=== PATIENT | female | born 1965 | race Caucasian/White ===

== ENCOUNTER 2020-07-27 10:39 | Inpatient (IN) ==
[2020-07-27] MEDS ORDERED: *HR* FentaNYL (PF) 100 MCG/2 ML VIAL IVP ONE ×3 (10:49→13:44)
[2020-07-27] MEDS ORDERED: 0.9 % Sodium Chloride 1,000 ML IVC ONE (10:49)
[2020-07-27] MEDS ORDERED: Isovue-370 500 ML BOTTLE IVP ONE (10:49)
[2020-07-27 11:11] LABS: Basophils % 0.2 %; Eosinophils # 0.1 K/mcL (0.0-0.6); Eosinophils % 0.5 %; Hematocrit 42.5 % (35.3-44.9); Hemoglobin 13.4 g/dL (11.5-15.4); Immature Granulocytes % 0.3 % (0-4); Lymphocytes # 1.6 K/mcL (0.6-4.6); Lymphocytes % 10.9 %; Mean Corpuscular HGB Conc 31.5 g/dL (31.6-35.5); Mean Corpuscular Hemoglobin 26.6 pg (28.0-33.3); Mean Corpuscular Volume 84.3 fL (83.0-100.0); Mean Platelet Volume 10.1 fL (9.4-12.4); Monocytes # 0.6 K/mcL (0.0-1.3); Neutrophils # 12.3 K/mcL (1.6-8.9); Platelet Count 235 K/mcL (140-400); Red Blood Count 5.04 M/mcL (3.82-4.97); Red Cell Distribution Width 15.6 % (11.5-14.5); Segmented Neutrophils % 84.1 %; White Blood Count 14.7 K/mcL (4.3-11.1)
[2020-07-27 11:32] LABS: Alanine Aminotransferase 22 Units/L (7-52); Albumin 4.1 g/dL (3.5-5.7); Albumin/Globulin Ratio 1.4 (1.1-2.2); Alkaline Phosphatase 69 Units/L (34-104); Aspartate Amino Transferase 18 Units/L (13-39); BUN/Creatinine Ratio 26 (6-26); Bilirubin,Direct 0.2 mg/dL (0.0-0.2); Bilirubin,Indirect 0.7 mg/dL (0.0-1.0); Bilirubin,Total 0.9 mg/dL (0.3-1.0); Blood Urea Nitrogen 17 mg/dL (6-20); Calcium 9.4 mg/dL (8.6-10.3); Carbon Dioxide 29 mEq/L (23-29); Chloride 102 mEq/L (98-107); Glucose 110 mg/dL (70-105); Osmolality,Calculated 288 (280-300); Potassium 3.3 mEq/L (3.5-5.1); Sodium 138 mEq/L (136-145); Total Protein 7.1 g/dL (6.4-8.9); eGFR For African Americans > 60 (> 60); eGFR For Non-African Americans > 60 (> 60)
[2020-07-27 12:11] LABS: Bilirubin,Urine Negative (Negative); Blood,Urine Negative (Negative); Clarity,Urine Clear (Clear); Color,Urine Yellow (Yellow); Glucose,Urine (UA) Normal (Normal); Ketones,Urine Negative (Negative); Leukocyte Esterase,Urine Trace (Negative); Nitrite,Urine Positive (Negative); Protein,Urine Negative (Neg-Trace); Specific Gravity,Urine 1.025 (1.010-1.025); Urobilinogen,Urine Normal (Normal)
[2020-07-27 12:25] LABS: Bacteria,Urine Few per hpf (None-Few); Mucus,Urine Few per lpf (None-Few); RBC,Urine 0-3 per hpf (0-3); Squamous Epithelial Cell,Urine Moderate per hpf (None-Few); WBC,Urine 15-30 per hpf (0-3)
[2020-07-27] MEDS ORDERED: Piperacillin/Tazobactam 3.375 GM in Water for inj. (sterile) 20 ML IVP ONE (12:40)
[2020-07-27] MEDS ORDERED: Ondansetron ODT 4 MG TAB.RAPDIS SL PRN (17:15)
[2020-07-27] MEDS ORDERED: Naloxone 0.4 MG/ML INJ IVP PRN (17:15)
[2020-07-27] MEDS ORDERED: levoFLOXacin 750 MG/150 ML 750 MG/150 ML BAG IVPB SCH (18:00)
[2020-07-27 18:03] LABS: Basophils % 0.2 %; Eosinophils % 0.1 %; Hematocrit 42.5 % (35.3-44.9); Hemoglobin 13.8 g/dL (11.5-15.4); Immature Granulocytes % 0.5 % (0-4); Lymphocytes # 1.4 K/mcL (0.6-4.6); Lymphocytes % 7.5 %; Mean Corpuscular HGB Conc 32.5 g/dL (31.6-35.5); Mean Corpuscular Hemoglobin 27.6 pg (28.0-33.3); Mean Platelet Volume 9.9 fL (9.4-12.4); Monocytes # 0.6 K/mcL (0.0-1.3); Monocytes % 3.4 %; Neutrophils # 16.6 K/mcL (1.6-8.9); Platelet Count 234 K/mcL (140-400); Red Cell Distribution Width 15.8 % (11.5-14.5); Segmented Neutrophils % 88.3 %; White Blood Count 18.7 K/mcL (4.3-11.1)
[2020-07-27 18:13] LABS: INR 1.1; Prothrombin Time 12.9 Seconds (9.4-12.1)
[2020-07-27 18:16] LABS: Activated Partial Thrombo Time 26.9 Seconds (26.0-36.0)
[2020-07-27 18:22] LABS: Alanine Aminotransferase 20 Units/L (7-52); Albumin 4.3 g/dL (3.5-5.7); Albumin/Globulin Ratio 1.4 (1.1-2.2); Alkaline Phosphatase 70 Units/L (34-104); Aspartate Amino Transferase 19 Units/L (13-39); BUN/Creatinine Ratio 19 (6-26); Bilirubin,Direct 0.2 mg/dL (0.0-0.2); Bilirubin,Indirect 0.9 mg/dL (0.0-1.0); Bilirubin,Total 1.1 mg/dL (0.3-1.0); Blood Urea Nitrogen 13 mg/dL (6-20); Calcium 9.3 mg/dL (8.6-10.3); Carbon Dioxide 27 mEq/L (23-29); Chloride 101 mEq/L (98-107); Globulin 3.1 g/dL (2.4-3.5); Glucose 112 mg/dL (70-105); Osmolality,Calculated 283 (280-300); Potassium 3.3 mEq/L (3.5-5.1); Sodium 136 mEq/L (136-145); Total Protein 7.4 g/dL (6.4-8.9); eGFR For African Americans > 60 (> 60); eGFR For Non-African Americans > 60 (> 60)
[2020-07-27] MEDS: 0.9 % Sodium Chloride 1,000 ML IVC SCH ×4 (18:26→21:40)
[2020-07-27] MEDS: MetroNIDAZOLE 500 MG/100 ML 500 MG/100 ML BAG IVPB SCH (18:27)
[2020-07-27] MEDS ORDERED: Potassium Chloride 40 MEQ, Lidocaine 1% 2 ML in 0.9 % Sodium Chloride 500 ML IVPB ONE (18:41)
[2020-07-27] MEDS: *HR* Heparin 5,000 UNIT/ML VIAL SQ SCH (19:44)
[2020-07-28] MEDS: MetroNIDAZOLE 500 MG/100 ML 500 MG/100 ML BAG IVPB SCH ×3 (01:43→19:13)
[2020-07-28] MEDS: *HR* Heparin 5,000 UNIT/ML VIAL SQ SCH ×2 (05:54→17:02)
[2020-07-28 08:31] LABS: Basophils % 0.2 %; Eosinophils % 0.3 %; Hematocrit 38.9 % (35.3-44.9); Immature Granulocytes % 0.5 % (0-4); Lymphocytes # 1.9 K/mcL (0.6-4.6); Lymphocytes % 15.7 %; Mean Corpuscular HGB Conc 30.6 g/dL (31.6-35.5); Mean Corpuscular Hemoglobin 26.6 pg (28.0-33.3); Mean Platelet Volume 10.2 fL (9.4-12.4); Monocytes # 0.8 K/mcL (0.0-1.3); Monocytes % 6.5 %; Platelet Count 197 K/mcL (140-400); Red Blood Count 4.47 M/mcL (3.82-4.97); Red Cell Distribution Width 15.9 % (11.5-14.5); Segmented Neutrophils % 76.8 %; White Blood Count 11.8 K/mcL (4.3-11.1)
[2020-07-28 08:33] LABS: Hemoglobin 11.9 g/dL (11.5-15.4)
[2020-07-28 08:38] LABS: INR 1.3
[2020-07-28 08:40] LABS: Activated Partial Thrombo Time 27.9 Seconds (26.0-36.0)
[2020-07-28 08:44] LABS: Alanine Aminotransferase 19 Units/L (7-52); Albumin 3.6 g/dL (3.5-5.7); Albumin/Globulin Ratio 1.3 (1.1-2.2); Alkaline Phosphatase 55 Units/L (34-104); Aspartate Amino Transferase 14 Units/L (13-39); BUN/Creatinine Ratio 18 (6-26); Bilirubin,Total 1.1 mg/dL (0.3-1.0); Blood Urea Nitrogen 11 mg/dL (6-20); Calcium 8.4 mg/dL (8.6-10.3); Carbon Dioxide 26 mEq/L (23-29); Chloride 103 mEq/L (98-107); Chol/HDL Ratio 2.6 (0-4.9); Cholesterol 121 mg/dL (< 200); Globulin 2.7 g/dL (2.4-3.5); Glucose 96 mg/dL (70-105); HDL Cholesterol 47 mg/dL (40-59); LDL Cholesterol,Calculated 62 mg/dL (< 100); Osmolality,Calculated 281 (280-300); Phosphorous 2.4 mg/dL (2.7-4.5); Potassium 3.3 mEq/L (3.5-5.1); Sodium 136 mEq/L (136-145); Total Protein 6.3 g/dL (6.4-8.9); Triglycerides 60 mg/dL (< 150); eGFR For African Americans > 60 (> 60); eGFR For Non-African Americans > 60 (> 60)
[2020-07-28] MEDS ORDERED: Potassium Phosphate 44 MEQ in 0.9 % Sodium Chloride 250 ML IVPB ONE (09:15)
[2020-07-29] MEDS: MetroNIDAZOLE 500 MG/100 ML 500 MG/100 ML BAG IVPB SCH ×3 (02:23→17:50)
[2020-07-29] MEDS: *HR* Heparin 5,000 UNIT/ML VIAL SQ SCH ×2 (05:19→17:50)
[2020-07-29 09:36] LABS: Basophils % 0.3 %; Eosinophils # 0.1 K/mcL (0.0-0.6); Eosinophils % 0.5 %; Hematocrit 42.1 % (35.3-44.9); Hemoglobin 12.9 g/dL (11.5-15.4); Immature Granulocytes % 0.4 % (0-4); Lymphocytes # 1.5 K/mcL (0.6-4.6); Lymphocytes % 14.8 %; Mean Corpuscular HGB Conc 30.6 g/dL (31.6-35.5); Mean Corpuscular Hemoglobin 26.5 pg (28.0-33.3); Mean Corpuscular Volume 86.6 fL (83.0-100.0); Mean Platelet Volume 10.1 fL (9.4-12.4); Monocytes # 0.7 K/mcL (0.0-1.3); Monocytes % 6.3 %; Platelet Count 212 K/mcL (140-400); Red Blood Count 4.86 M/mcL (3.82-4.97); Red Cell Distribution Width 15.8 % (11.5-14.5); Segmented Neutrophils % 77.7 %; White Blood Count 10.3 K/mcL (4.3-11.1)
[2020-07-29 09:43] LABS: INR 1.3; Prothrombin Time 14.6 Seconds (9.4-12.1)
[2020-07-29 09:56] LABS: Alanine Aminotransferase 13 Units/L (7-52); Albumin/Globulin Ratio 1.3 (1.1-2.2); Alkaline Phosphatase 62 Units/L (34-104); Aspartate Amino Transferase 14 Units/L (13-39); BUN/Creatinine Ratio 19 (6-26); Bilirubin,Total 0.9 mg/dL (0.3-1.0); Blood Urea Nitrogen 12 mg/dL (6-20); Carbon Dioxide 25 mEq/L (23-29); Chloride 101 mEq/L (98-107); Glucose 82 mg/dL (70-105); Osmolality,Calculated 279 (280-300); Potassium 3.4 mEq/L (3.5-5.1); Sodium 135 mEq/L (136-145); eGFR For African Americans > 60 (> 60); eGFR For Non-African Americans > 60 (> 60)
[2020-07-29] MEDS ORDERED: Potassium Chloride 40 MEQ, Lidocaine 1% 2 ML in 0.9 % Sodium Chloride 500 ML IVPB ONE (12:27)
[2020-07-30] MEDS: MetroNIDAZOLE 500 MG/100 ML 500 MG/100 ML BAG IVPB SCH ×3 (01:33→17:54)
[2020-07-30] MEDS: *HR* Heparin 5,000 UNIT/ML VIAL SQ SCH ×2 (05:31→17:52)
[2020-07-30 05:59] LABS: Basophils % 0.4 %; Eosinophils # 0.1 K/mcL (0.0-0.6); Eosinophils % 1.4 %; Hematocrit 36.6 % (35.3-44.9); Immature Granulocytes % 0.4 % (0-4); Lymphocytes # 1.8 K/mcL (0.6-4.6); Lymphocytes % 18.4 %; Mean Corpuscular HGB Conc 30.6 g/dL (31.6-35.5); Mean Corpuscular Hemoglobin 26.5 pg (28.0-33.3); Mean Corpuscular Volume 86.7 fL (83.0-100.0); Mean Platelet Volume 10.2 fL (9.4-12.4); Monocytes # 0.7 K/mcL (0.0-1.3); Monocytes % 6.9 %; Neutrophils # 7.1 K/mcL (1.6-8.9); Platelet Count 201 K/mcL (140-400); Red Blood Count 4.22 M/mcL (3.82-4.97); Red Cell Distribution Width 15.6 % (11.5-14.5); Segmented Neutrophils % 72.5 %; White Blood Count 9.7 K/mcL (4.3-11.1)
[2020-07-30 06:00] LABS: Hemoglobin 11.2 g/dL (11.5-15.4)
[2020-07-30 06:14] LABS: INR 1.4; Prothrombin Time 15.5 Seconds (9.4-12.1)
[2020-07-30 06:16] LABS: Alanine Aminotransferase 12 Units/L (7-52); Albumin 3.5 g/dL (3.5-5.7); Albumin/Globulin Ratio 1.3 (1.1-2.2); Alkaline Phosphatase 52 Units/L (34-104); Aspartate Amino Transferase 13 Units/L (13-39); BUN/Creatinine Ratio 14 (6-26); Bilirubin,Total 0.7 mg/dL (0.3-1.0); Blood Urea Nitrogen 10 mg/dL (6-20); Calcium 8.7 mg/dL (8.6-10.3); Carbon Dioxide 29 mEq/L (23-29); Chloride 103 mEq/L (98-107); Globulin 2.6 g/dL (2.4-3.5); Glucose 97 mg/dL (70-105); Osmolality,Calculated 281 (280-300); Potassium 3.8 mEq/L (3.5-5.1); Sodium 136 mEq/L (136-145); Total Protein 6.1 g/dL (6.4-8.9); eGFR For African Americans > 60 (> 60); eGFR For Non-African Americans > 60 (> 60)
[2020-07-30 11:48] LABS: Bilirubin,Urine Negative (Negative); Blood,Urine Large (Negative); Clarity,Urine Clear (Clear); Color,Urine Yellow (Yellow); Glucose,Urine (UA) Normal (Normal); Ketones,Urine Negative (Negative); Leukocyte Esterase,Urine Small (Negative); Nitrite,Urine Negative (Negative); Protein,Urine Negative (Neg-Trace); Urobilinogen,Urine Normal (Normal)
[2020-07-30 11:59] LABS: Mucus,Urine Few per lpf (None-Few); RBC,Urine TNTC per hpf (0-3); Squamous Epithelial Cell,Urine Moderate per hpf (None-Few)
[2020-07-31] MEDS: MetroNIDAZOLE 500 MG/100 ML 500 MG/100 ML BAG IVPB SCH ×2 (02:43→09:55)
[2020-07-31] MEDS: *HR* Heparin 5,000 UNIT/ML VIAL SQ SCH (05:47)
[2020-07-31 06:22] LABS: Basophils % 0.4 %; Eosinophils # 0.2 K/mcL (0.0-0.6); Eosinophils % 2.3 %; Hematocrit 35.9 % (35.3-44.9); Hemoglobin 11.2 g/dL (11.5-15.4); Immature Granulocytes % 0.7 % (0-4); Lymphocytes # 1.8 K/mcL (0.6-4.6); Lymphocytes % 21.6 %; Mean Corpuscular HGB Conc 31.2 g/dL (31.6-35.5); Mean Corpuscular Hemoglobin 27.5 pg (28.0-33.3); Mean Platelet Volume 10.3 fL (9.4-12.4); Monocytes # 0.6 K/mcL (0.0-1.3); Monocytes % 6.8 %; Neutrophils # 5.5 K/mcL (1.6-8.9); Platelet Count 222 K/mcL (140-400); Red Blood Count 4.08 M/mcL (3.82-4.97); Red Cell Distribution Width 15.4 % (11.5-14.5); Segmented Neutrophils % 68.2 %; White Blood Count 8.1 K/mcL (4.3-11.1)
[2020-07-31 07:20] VITALS: BP 107/66
== END 2020-07-31 12:51 | disposition home or self-care (01) | DRG 872 ==
LOC: EMEROOARM 10:39 → 3ANU 10:39 → SUATTDRO 14:08 → 3ANU 15:24
PROVIDERS: ADMIT Internal Medicine; ATTEND Internal Medicine

== ENCOUNTER 2020-08-22 13:29 | Observation (INO) ==
[2020-08-22] MEDS ORDERED: Ondansetron 4 MG/2 ML VIAL IVP PRN (14:18)
[2020-08-22] MEDS ORDERED: *HR* Metoprolol 5 MG/5 ML VIAL IVP PRN (14:18)
[2020-08-22] MEDS ORDERED: *HR* Promethazine 25 MG/ML VIAL IVP PRN (14:18)
[2020-08-22] MEDS ORDERED: Naloxone 0.4 MG/ML INJ IVP PRN (14:18)
[2020-08-22 14:48] LABS: Basophils % 0.4 %; Eosinophils # 0.1 K/mcL (0.0-0.6); Eosinophils % 1.2 %; Hematocrit 40.7 % (35.3-44.9); Hemoglobin 12.7 g/dL (11.5-15.4); Immature Granulocytes % 0.4 % (0-4); Lymphocytes # 1.5 K/mcL (0.6-4.6); Lymphocytes % 17.7 %; Mean Corpuscular HGB Conc 31.2 g/dL (31.6-35.5); Mean Corpuscular Hemoglobin 26.5 pg (28.0-33.3); Mean Corpuscular Volume 84.8 fL (83.0-100.0); Mean Platelet Volume 9.6 fL (9.4-12.4); Monocytes # 0.4 K/mcL (0.0-1.3); Monocytes % 4.9 %; Neutrophils # 6.4 K/mcL (1.6-8.9); Platelet Count 238 K/mcL (140-400); Red Cell Distribution Width 14.8 % (11.5-14.5); Segmented Neutrophils % 75.4 %; White Blood Count 8.5 K/mcL (4.3-11.1)
[2020-08-22 15:05] LABS: BUN/Creatinine Ratio 19 (6-26); Blood Urea Nitrogen 13 mg/dL (6-20); Calcium 9.2 mg/dL (8.6-10.3); Carbon Dioxide 30 mEq/L (23-29); Chloride 99 mEq/L (98-107); Glucose 119 mg/dL (70-105); Osmolality,Calculated 285 (280-300); Sodium 137 mEq/L (136-145); eGFR For African Americans > 60 (> 60); eGFR For Non-African Americans > 60 (> 60)
[2020-08-22 16:43] LABS: Phosphorous 2.3 mg/dL (2.7-4.5)
[2020-08-22] MEDS ORDERED: Potassium Phosphate 44 MEQ in 0.9 % Sodium Chloride 250 ML IVPB ONE (17:00)
[2020-08-22] MEDS: Piperacillin/Tazobactam 3.375 GM in 0.9 % Sodium Chloride Mini Bag 100 ML IVPB SCH ×2 (17:43→19:44)
[2020-08-22] MEDS: 0.9 % Sodium Chloride 1,000 ML IVC SCH (17:46)
[2020-08-23 05:52] LABS: Basophils % 0.6 %; Eosinophils # 0.1 K/mcL (0.0-0.6); Eosinophils % 1.8 %; Hematocrit 38.2 % (35.3-44.9); Hemoglobin 12.1 g/dL (11.5-15.4); Immature Granulocytes % 0.3 % (0-4); Lymphocytes # 1.7 K/mcL (0.6-4.6); Lymphocytes % 26.1 %; Mean Corpuscular HGB Conc 31.7 g/dL (31.6-35.5); Mean Corpuscular Hemoglobin 27.3 pg (28.0-33.3); Mean Corpuscular Volume 86.2 fL (83.0-100.0); Mean Platelet Volume 9.8 fL (9.4-12.4); Monocytes # 0.5 K/mcL (0.0-1.3); Neutrophils # 4.2 K/mcL (1.6-8.9); Platelet Count 230 K/mcL (140-400); Red Blood Count 4.43 M/mcL (3.82-4.97); Red Cell Distribution Width 15.1 % (11.5-14.5); Segmented Neutrophils % 63.2 %; White Blood Count 6.6 K/mcL (4.3-11.1)
[2020-08-23 06:18] LABS: BUN/Creatinine Ratio 18 (6-26); Blood Urea Nitrogen 12 mg/dL (6-20); Calcium 9.1 mg/dL (8.6-10.3); Carbon Dioxide 29 mEq/L (23-29); Chloride 101 mEq/L (98-107); Glucose 110 mg/dL (70-105); Magnesium 2.1 mg/dL (1.6-2.6); Osmolality,Calculated 286 (280-300); Phosphorous 4.4 mg/dL (2.7-4.5); Potassium 3.7 mEq/L (3.5-5.1); Sodium 138 mEq/L (136-145); eGFR For African Americans > 60 (> 60); eGFR For Non-African Americans > 60 (> 60)
[2020-08-23] MEDS: Piperacillin/Tazobactam 3.375 GM in 0.9 % Sodium Chloride Mini Bag 100 ML IVPB SCH ×3 (08:30→15:29)
[2020-08-23] MEDS: Pantoprazole 40 MG VIAL IVP SCH (08:30)
[2020-08-23] MEDS ORDERED: Ondansetron ODT 4 MG TAB.RAPDIS SL PRN (08:58)
[2020-08-23 11:06] LABS: Estimated Average Glucose 123 mg/dl
[2020-08-23] MEDS: *HR* Heparin 5,000 UNIT/ML VIAL SQ SCH ×2 (14:32→21:04)
[2020-08-23] MEDS: 0.9 % Sodium Chloride 1,000 ML IVC SCH (18:39)
[2020-08-24] MEDS: Piperacillin/Tazobactam 3.375 GM in 0.9 % Sodium Chloride Mini Bag 100 ML IVPB SCH ×2 (00:11→07:58)
[2020-08-24] MEDS: *HR* Heparin 5,000 UNIT/ML VIAL SQ SCH (05:19)
[2020-08-24] MEDS ORDERED: Isovue-370 500 ML BOTTLE IVP ONE (06:55)
[2020-08-24 07:46] LABS: INR 1.2; Prothrombin Time 14.3 Seconds (9.4-12.1)
[2020-08-24 07:48] LABS: Basophils % 0.5 %; Eosinophils # 0.2 K/mcL (0.0-0.6); Eosinophils % 2.6 %; Hematocrit 38.3 % (35.3-44.9); Hemoglobin 12.1 g/dL (11.5-15.4); Immature Granulocytes % 0.3 % (0-4); Lymphocytes # 2.1 K/mcL (0.6-4.6); Lymphocytes % 33.4 %; Mean Corpuscular HGB Conc 31.6 g/dL (31.6-35.5); Mean Corpuscular Hemoglobin 27.4 pg (28.0-33.3); Mean Corpuscular Volume 86.8 fL (83.0-100.0); Monocytes # 0.4 K/mcL (0.0-1.3); Monocytes % 6.7 %; Neutrophils # 3.5 K/mcL (1.6-8.9); Platelet Count 231 K/mcL (140-400); Red Blood Count 4.41 M/mcL (3.82-4.97); Red Cell Distribution Width 15.1 % (11.5-14.5); Segmented Neutrophils % 56.5 %; White Blood Count 6.2 K/mcL (4.3-11.1)
[2020-08-24] MEDS: Pantoprazole 40 MG VIAL IVP SCH (07:58)
[2020-08-24 08:13] LABS: BUN/Creatinine Ratio 12 (6-26); Blood Urea Nitrogen 8 mg/dL (6-20); Calcium 9.1 mg/dL (8.6-10.3); Carbon Dioxide 27 mEq/L (23-29); Chloride 104 mEq/L (98-107); Glucose 111 mg/dL (70-105); Magnesium 2.2 mg/dL (1.6-2.6); Osmolality,Calculated 287 (280-300); Phosphorous 3.1 mg/dL (2.7-4.5); Potassium 3.5 mEq/L (3.5-5.1); Sodium 139 mEq/L (136-145); eGFR For African Americans > 60 (> 60); eGFR For Non-African Americans > 60 (> 60)
[2020-08-24 10:49] VITALS: BP 107/63
[2020-08-24] MEDS ORDERED: FLU Vac QV 20-21 (6Month+)/PF 0.5 ML SYRINGE IM ONE (14:17)
== END 2020-08-24 15:36 | disposition home or self-care (01) ==
LOC: 3ANU
PROVIDERS: ADMIT Surgery; ATTEND Surgery

== ENCOUNTER 2020-12-12 09:16 | Inpatient (IN) ==
[~2020-12-12 09:16] MED LIST: *HR* HYDROcodone/Acet 5/325 mg TABLET PO PRN; *HR* HYDROmorphone PF 0.5 MG/0.5 ML SYRINGE IVP PRN; Ondansetron 4 MG/2 ML VIAL IVP PRN
[2020-12-12] MEDS ORDERED: Acetaminophen IV 1,000 MG/100 ML BAG IVPB ONE (09:27)
[2020-12-12] MEDS ORDERED: Albumin Human 5% 25.0 GM/500 ML IV.SOLN ONE (09:27)
[2020-12-12] MEDS ORDERED: Lidocaine -MPF 4% 5 ML AMPUL ONE (09:29)
[2020-12-12] MEDS ORDERED: cefOXitin 2,000 MG in Water for inj. (sterile) 20 ML IVP ONE (09:35)
[2020-12-12] MEDS ORDERED: *HR* FentaNYL (PF) 100 MCG/2 ML VIAL ONE (09:36)
[2020-12-12] MEDS ORDERED: *HR* Midazolam HCl 2 MG/2 ML VIAL ONE (09:36)
[2020-12-12] MEDS ORDERED: *HR* HYDROMORPHONE 2 MG/ML VIAL ONE (09:37)
[2020-12-12] MEDS ORDERED: *HR* Succinylcholine 200 MG/10 ML VIAL IVP ONE (09:41)
[2020-12-12] MEDS ORDERED: Ondansetron 4 MG/2 ML VIAL ONE (09:41)
[2020-12-12] MEDS ORDERED: *HR* Rocuronium Bromide 50 MG/5 ML VIAL ONE ×2 (09:41→11:40)
[2020-12-12] MEDS ORDERED: Lidocaine -MPF 2% 2 ML VIAL ONE (09:41)
[2020-12-12] MEDS ORDERED: *HR* Magnesium Sulfate 1 GM/2 ML VIAL ONE (09:44)
[2020-12-12] MEDS ORDERED: Ringers Solution, Lactated 1,000 ML IVC SCH (09:45)
[2020-12-12] MEDS ORDERED: *HR* Labetalol 20 MG/4 ML SYRINGE IVP ONE (13:04)
[2020-12-12] MEDS ORDERED: CefOXitin 2,000 MG VIAL ONE (14:58)
[2020-12-12] MEDS ORDERED: Naloxone 0.4 MG/ML INJ IVP PRN (16:48)
[2020-12-12] MEDS ORDERED: D5% in Water 1,000 ML IVC PRN (16:48)
[2020-12-12] MEDS ORDERED: *HR* Metoprolol 5 MG/5 ML VIAL IVP PRN (16:48)
[2020-12-12] MEDS ORDERED: Ondansetron 4 MG/2 ML VIAL IVP PRN (16:48)
[2020-12-12] MEDS ORDERED: *HR* Dextrose 50 % in Water (Vial) 50 ML VIAL IVP PRN (16:48)
[2020-12-12] MEDS ORDERED: Dextrose Gel 15 GM/37.5 ML TUBE PO PRN ×2 (16:48)
[2020-12-12] MEDS: Piperacillin/Tazobactam 3.375 GM in 0.9 % Sodium Chloride Mini Bag 100 ML IVPB SCH ×2 (17:14→23:48)
[2020-12-12] MEDS: 0.9 % Sodium Chloride 1,000 ML IVC SCH (17:15)
[2020-12-12] MEDS: Acetaminophen IV 1,000 MG/100 ML BAG IVPB SCH ×2 (18:00→23:49)
[2020-12-12] MEDS: Insulin LISPRO 300 UNITS/3 ML VIAL SUBQ SCH ×2 (18:03→23:55)
[2020-12-12] MEDS: *HR* FentaNYL (PF) 100 MCG/2 ML VIAL IVP PRN ×2 (20:39→23:49)
[2020-12-13] MEDS: 0.9 % Sodium Chloride 1,000 ML IVC SCH ×3 (01:15→16:00)
[2020-12-13 02:09] LABS: Basophils % 0.1 %; Hemoglobin 11.6 g/dL (11.5-15.4); Immature Granulocytes % 0.3 % (0-4); Lymphocytes # 0.8 K/mcL (0.6-4.6); Mean Corpuscular HGB Conc 30.5 g/dL (31.6-35.5); Mean Corpuscular Hemoglobin 25.3 pg (28.0-33.3); Mean Platelet Volume 10.7 fL (9.4-12.4); Monocytes % 4.8 %; Neutrophils # 18.4 K/mcL (1.6-8.9); Platelet Count 257 K/mcL (140-400); Red Blood Count 4.58 M/mcL (3.82-4.97); Segmented Neutrophils % 90.8 %; White Blood Count 20.3 K/mcL (4.3-11.1)
[2020-12-13 02:20] LABS: BUN/Creatinine Ratio 19 (6-26); Blood Urea Nitrogen 15 mg/dL (6-20); Calcium 8.6 mg/dL (8.6-10.3); Carbon Dioxide 25 mEq/L (23-29); Chloride 105 mEq/L (98-107); Glucose 185 mg/dL (70-105); Magnesium 2.4 mg/dL (1.6-2.6); Osmolality,Calculated 294 (280-300); Phosphorous 3.1 mg/dL (2.7-4.5); Potassium 3.8 mEq/L (3.5-5.1); Sodium 139 mEq/L (136-145); eGFR For African Americans > 60 (> 60); eGFR For Non-African Americans > 60 (> 60)
[2020-12-13] MEDS: Insulin LISPRO 300 UNITS/3 ML VIAL SUBQ SCH ×3 (05:40→17:44)
[2020-12-13] MEDS: Acetaminophen IV 1,000 MG/100 ML BAG IVPB SCH ×4 (05:40→23:16)
[2020-12-13] MEDS: Piperacillin/Tazobactam 3.375 GM in 0.9 % Sodium Chloride Mini Bag 100 ML IVPB SCH ×3 (07:52→23:17)
[2020-12-13] MEDS: Pantoprazole 40 MG VIAL IVP SCH (07:55)
[2020-12-13] MEDS ORDERED: Chloraseptic Spray 177 ML BOTTLE MM PRN (08:52)
[2020-12-13] MEDS ORDERED: Albuterol 2.5 MG/3 ML NEBULIZER IH PRN (09:37)
[2020-12-13] MEDS: Ketorolac 15 MG/ML VIAL IVP SCH ×3 (11:10→23:17)
[2020-12-13] MEDS: *HR* FentaNYL (PF) 100 MCG/2 ML VIAL IVP PRN ×2 (14:28→16:41)
[2020-12-13] MEDS: *HR* Heparin 5,000 UNIT/ML VIAL SQ SCH (17:23)
[2020-12-14] MEDS: 0.9 % Sodium Chloride 1,000 ML IVC SCH (00:27)
[2020-12-14] MEDS: Insulin LISPRO 300 UNITS/3 ML VIAL SUBQ SCH ×4 (01:23→17:51)
[2020-12-14] MEDS: *HR* Heparin 5,000 UNIT/ML VIAL SQ SCH ×2 (05:34→17:50)
[2020-12-14] MEDS: Ketorolac 15 MG/ML VIAL IVP SCH ×4 (05:35→23:43)
[2020-12-14] MEDS: Acetaminophen IV 1,000 MG/100 ML BAG IVPB SCH ×4 (05:35→23:54)
[2020-12-14 05:38] LABS: Basophils % 0.1 %; Hematocrit 31.6 % (35.3-44.9); Immature Granulocytes % 0.5 % (0-4); Lymphocytes # 1.8 K/mcL (0.6-4.6); Lymphocytes % 12.5 %; Mean Corpuscular HGB Conc 30.4 g/dL (31.6-35.5); Mean Corpuscular Hemoglobin 25.3 pg (28.0-33.3); Mean Corpuscular Volume 83.4 fL (83.0-100.0); Mean Platelet Volume 10.4 fL (9.4-12.4); Monocytes # 0.8 K/mcL (0.0-1.3); Monocytes % 5.7 %; Neutrophils # 11.7 K/mcL (1.6-8.9); Platelet Count 229 K/mcL (140-400); Red Blood Count 3.79 M/mcL (3.82-4.97); Red Cell Distribution Width 15.4 % (11.5-14.5); Segmented Neutrophils % 81.2 %; White Blood Count 14.4 K/mcL (4.3-11.1)
[2020-12-14 05:39] LABS: Hemoglobin 9.6 g/dL (11.5-15.4)
[2020-12-14 06:04] LABS: BUN/Creatinine Ratio 24 (6-26); Blood Urea Nitrogen 19 mg/dL (6-20); Calcium 8.3 mg/dL (8.6-10.3); Carbon Dioxide 26 mEq/L (23-29); Chloride 108 mEq/L (98-107); Glucose 103 mg/dL (70-105); Magnesium 2.3 mg/dL (1.6-2.6); Osmolality,Calculated 291 (280-300); Phosphorous 2.2 mg/dL (2.7-4.5); Potassium 3.4 mEq/L (3.5-5.1); Sodium 139 mEq/L (136-145); eGFR For African Americans > 60 (> 60); eGFR For Non-African Americans > 60 (> 60)
[2020-12-14] MEDS: Pantoprazole 40 MG VIAL IVP SCH (08:59)
[2020-12-14] MEDS: Piperacillin/Tazobactam 3.375 GM in 0.9 % Sodium Chloride Mini Bag 100 ML IVPB SCH ×3 (09:00→23:45)
[2020-12-14] MEDS: D5% in 0.45% NACL w KCl 20 MEQ/1,000 ML MLS IVC SCH ×2 (09:05→21:50)
[2020-12-14] MEDS: *HR* FentaNYL (PF) 100 MCG/2 ML VIAL IVP PRN (23:50)
[2020-12-15] MEDS: Insulin LISPRO 300 UNITS/3 ML VIAL SUBQ SCH ×4 (00:12→17:50)
[2020-12-15 02:55] LABS: Basophils % 0.3 %; Eosinophils # 0.1 K/mcL (0.0-0.6); Eosinophils % 1.1 %; Hematocrit 30.8 % (35.3-44.9); Hemoglobin 9.6 g/dL (11.5-15.4); Immature Granulocytes % 0.4 % (0-4); Lymphocytes # 2.4 K/mcL (0.6-4.6); Lymphocytes % 21.7 %; Mean Corpuscular HGB Conc 31.2 g/dL (31.6-35.5); Mean Corpuscular Volume 83.5 fL (83.0-100.0); Mean Platelet Volume 10.3 fL (9.4-12.4); Monocytes # 0.6 K/mcL (0.0-1.3); Monocytes % 5.7 %; Neutrophils # 7.8 K/mcL (1.6-8.9); Platelet Count 220 K/mcL (140-400); Red Blood Count 3.69 M/mcL (3.82-4.97); Red Cell Distribution Width 15.4 % (11.5-14.5); Segmented Neutrophils % 70.8 %
[2020-12-15 03:14] LABS: BUN/Creatinine Ratio 21 (6-26); Blood Urea Nitrogen 14 mg/dL (6-20); Calcium 8.3 mg/dL (8.6-10.3); Carbon Dioxide 26 mEq/L (23-29); Chloride 107 mEq/L (98-107); Glucose 100 mg/dL (70-105); Magnesium 1.9 mg/dL (1.6-2.6); Osmolality,Calculated 287 (280-300); Potassium 3.5 mEq/L (3.5-5.1); Sodium 138 mEq/L (136-145); eGFR For African Americans > 60 (> 60); eGFR For Non-African Americans > 60 (> 60)
[2020-12-15] MEDS: Ketorolac 15 MG/ML VIAL IVP SCH ×4 (05:26→22:59)
[2020-12-15] MEDS: Acetaminophen IV 1,000 MG/100 ML BAG IVPB SCH ×4 (05:26→22:59)
[2020-12-15] MEDS: *HR* Heparin 5,000 UNIT/ML VIAL SQ SCH ×2 (05:26→17:54)
[2020-12-15] MEDS: D5% in 0.45% NACL w KCl 20 MEQ/1,000 ML MLS IVC SCH ×2 (08:15→20:02)
[2020-12-15] MEDS: Pantoprazole 40 MG VIAL IVP SCH (09:54)
[2020-12-15] MEDS: Piperacillin/Tazobactam 3.375 GM in 0.9 % Sodium Chloride Mini Bag 100 ML IVPB SCH ×3 (09:54→23:00)
[2020-12-15] MEDS: *HR* FentaNYL (PF) 100 MCG/2 ML VIAL IVP PRN ×2 (13:28→16:09)
[2020-12-16] MEDS: Insulin LISPRO 300 UNITS/3 ML VIAL SUBQ SCH ×4 (00:13→17:35)
[2020-12-16] MEDS: D5% in 0.45% NACL w KCl 20 MEQ/1,000 ML MLS IVC SCH ×2 (01:50→19:24)
[2020-12-16 04:29] LABS: Basophils % 0.5 %; Eosinophils # 0.3 K/mcL (0.0-0.6); Eosinophils % 3.6 %; Hematocrit 29.8 % (35.3-44.9); Hemoglobin 9.3 g/dL (11.5-15.4); Immature Granulocytes % 0.5 % (0-4); Lymphocytes % 24.6 %; Mean Corpuscular HGB Conc 31.2 g/dL (31.6-35.5); Mean Corpuscular Hemoglobin 26.1 pg (28.0-33.3); Mean Corpuscular Volume 83.5 fL (83.0-100.0); Mean Platelet Volume 10.3 fL (9.4-12.4); Monocytes # 0.4 K/mcL (0.0-1.3); Monocytes % 5.1 %; Neutrophils # 5.4 K/mcL (1.6-8.9); Platelet Count 237 K/mcL (140-400); Red Blood Count 3.57 M/mcL (3.82-4.97); Segmented Neutrophils % 65.7 %; White Blood Count 8.2 K/mcL (4.3-11.1)
[2020-12-16 04:30] LABS: BUN/Creatinine Ratio 15 (6-26); Blood Urea Nitrogen 8 mg/dL (6-20); Calcium 8.2 mg/dL (8.6-10.3); Carbon Dioxide 27 mEq/L (23-29); Chloride 106 mEq/L (98-107); Glucose 99 mg/dL (70-105); Magnesium 1.8 mg/dL (1.6-2.6); Osmolality,Calculated 284 (280-300); Phosphorous 3.2 mg/dL (2.7-4.5); Potassium 3.5 mEq/L (3.5-5.1); Sodium 138 mEq/L (136-145); eGFR For African Americans > 60 (> 60); eGFR For Non-African Americans > 60 (> 60)
[2020-12-16] MEDS: Ketorolac 15 MG/ML VIAL IVP SCH ×3 (05:20→17:33)
[2020-12-16] MEDS: *HR* Heparin 5,000 UNIT/ML VIAL SQ SCH ×2 (05:20→17:34)
[2020-12-16] MEDS: Acetaminophen IV 1,000 MG/100 ML BAG IVPB SCH (05:21)
[2020-12-16] MEDS: Piperacillin/Tazobactam 3.375 GM in 0.9 % Sodium Chloride Mini Bag 100 ML IVPB SCH ×2 (08:03→15:38)
[2020-12-16] MEDS: Pantoprazole 40 MG VIAL IVP SCH (08:03)
[2020-12-16] MEDS: Acetaminophen 325 MG TABLET PO SCH ×2 (12:22→17:34)
[2020-12-16] MEDS: *HR* FentaNYL (PF) 100 MCG/2 ML VIAL IVP PRN (15:30)
[2020-12-17] MEDS: *HR* OxyCODONE/APAP 5/325 TABLET PO PRN ×4 (00:20→19:59)
[2020-12-17] MEDS: Piperacillin/Tazobactam 3.375 GM in 0.9 % Sodium Chloride Mini Bag 100 ML IVPB SCH ×3 (00:21→15:23)
[2020-12-17] MEDS: Ibuprofen 600 MG TABLET PO SCH ×3 (00:21→15:23)
[2020-12-17] MEDS: *HR* Heparin 5,000 UNIT/ML VIAL SQ SCH ×2 (06:25→17:48)
[2020-12-17] MEDS ORDERED: polyethylene glycoL 3350 17 GM POWD.PACK PO SCH (11:00)
[2020-12-17] MEDS: D5% in 0.45% NACL w KCl 20 MEQ/1,000 ML MLS IVC SCH (12:45)
[2020-12-18] MEDS: Ibuprofen 600 MG TABLET PO SCH ×2 (00:21→08:09)
[2020-12-18] MEDS: Piperacillin/Tazobactam 3.375 GM in 0.9 % Sodium Chloride Mini Bag 100 ML IVPB SCH ×2 (00:22→08:08)
[2020-12-18] MEDS: *HR* Heparin 5,000 UNIT/ML VIAL SQ SCH (05:16)
[2020-12-18] MEDS: *HR* OxyCODONE/APAP 5/325 TABLET PO PRN ×2 (05:16→11:21)
[2020-12-18 11:09] VITALS: BP 133/85
== END 2020-12-18 15:53 | disposition home or self-care (01) | DRG 330 ==
LOC: SAMDAY 09:16 → 3ANU 16:46
PROVIDERS: ADMIT Surgery; ATTEND Surgery

== ENCOUNTER 2021-07-03 13:39 | Inpatient (IN) ==
[2021-07-03 14:39] LABS: Hematocrit 38.8 % (35.3-44.9); Hemoglobin 12.5 g/dL (11.5-15.4); Immature Granulocytes % 0.4 % (0-4); Lymphocytes # 0.6 K/mcL (0.6-4.6); Lymphocytes % 22.1 %; Mean Corpuscular HGB Conc 32.2 g/dL (31.6-35.5); Mean Corpuscular Hemoglobin 25.6 pg (28.0-33.3); Mean Corpuscular Volume 79.3 fL (83.0-100.0); Mean Platelet Volume 9.9 fL (9.4-12.4); Monocytes # 0.2 K/mcL (0.0-1.3); Monocytes % 7.1 %; Neutrophils # 1.9 K/mcL (1.6-8.9); Platelet Count 161 K/mcL (140-400); Red Blood Count 4.89 M/mcL (3.82-4.97); Red Cell Distribution Width 16.6 % (11.5-14.5); Segmented Neutrophils % 70.4 %; White Blood Count 2.7 K/mcL (4.3-11.1)
[2021-07-03 15:01] LABS: BUN/Creatinine Ratio 18 (6-26); Blood Urea Nitrogen 13 mg/dL (6-20); Calcium 8.5 mg/dL (8.6-10.3); Carbon Dioxide 27 mEq/L (23-29); Chloride 103 mEq/L (98-107); Glucose 108 mg/dL (70-105); Osmolality,Calculated 285 (280-300); Sodium 137 mEq/L (136-145); eGFR For African Americans > 60 (> 60); eGFR For Non-African Americans > 60 (> 60)
[2021-07-03 15:10] LABS: Troponin I < 0.03 ng/mL (< 0.04)
[2021-07-03] MEDS ORDERED: Isovue-370 500 ML BOTTLE IVP ONE (16:01)
[2021-07-03 17:00] LABS: Bacteria,Urine Moderate per hpf (None-Few); Bilirubin,Urine Negative (Negative); Blood,Urine Negative (Negative); Clarity,Urine Clear (Clear); Color,Urine Yellow (Yellow); Glucose,Urine (UA) Normal (Normal); Ketones,Urine Negative (Negative); Leukocyte Esterase,Urine Trace (Negative); Mucus,Urine Many per lpf (None-Few); Nitrite,Urine Positive (Negative); Protein,Urine 30 mg/dL (Neg-Trace); RBC,Urine 0-3 per hpf (0-3); Specific Gravity,Urine > 1.030 (1.010-1.025); Squamous Epithelial Cell,Urine Few per hpf (None-Few); Urobilinogen,Urine Normal (Normal)
[2021-07-03] MEDS ORDERED: cefTRIAXone 1,000 MG in Water for inj. (sterile) 10 ML IVP STA (17:10)
[2021-07-03] MEDS ORDERED: Ondansetron 4 MG/2 ML VIAL IVP PRN (17:33)
[2021-07-03] MEDS ORDERED: Naloxone 0.4 MG/ML INJ IVP PRN (17:33)
[2021-07-03] MEDS ORDERED: *HR* OxyCODONE Immed Rel 5 MG TABLET PO PRN (17:33)
[2021-07-03] MEDS ORDERED: Artificial Tears SOLN 15 ML BOTTLE BOTH EYES PRN (17:35)
[2021-07-03] MEDS ORDERED: Saline Nasal Spray 44 ML BOTTLE NS PRN (17:35)
[2021-07-03] MEDS ORDERED: Saliva Stimulant 44.3ml BOTTLE PO PRN (17:35)
[2021-07-03] MEDS ORDERED: Chloraseptic Spray 177 ML BOTTLE MM PRN (17:35)
[2021-07-03 17:56] LABS: Chol/HDL Ratio 3.3 (0-4.9); Cholesterol 102 mg/dL (< 200); HDL Cholesterol 31 mg/dL (40-59); LDL Cholesterol,Calculated 55 mg/dL (< 100); Triglycerides 81 mg/dL (< 150)
[2021-07-03 18:25] LABS: INR 1.2; Prothrombin Time 14.2 Seconds (9.4-12.1)
[2021-07-03] MEDS ORDERED: rOPINIRole 0.25 MG TABLET PO PRN (18:27)
[2021-07-03 18:33] LABS: Alanine Aminotransferase 55 Units/L (7-52); Albumin 3.7 g/dL (3.5-5.7); Albumin/Globulin Ratio 1.1 (1.1-2.2); Alkaline Phosphatase 63 Units/L (34-104); Aspartate Amino Transferase 72 Units/L (13-39); Bilirubin,Direct 0.1 mg/dL (0.0-0.2); Bilirubin,Indirect 0.4 mg/dL (0.0-1.0); Bilirubin,Total 0.5 mg/dL (0.3-1.0); Globulin 3.4 g/dL (2.4-3.5); Total Protein 7.1 g/dL (6.4-8.9)
[2021-07-03] MEDS: Furosemide 20 MG/2 ML VIAL IVP SCH (19:05)
[2021-07-03] MEDS: Ipratropium 1 PUFF INHALER IH SCH ×2 (19:55→23:53)
[2021-07-03] MEDS: Lactobacillus 1 EACH CAP.SPRINK PO SCH (21:14)
[2021-07-03] MEDS: Chlorhexidine Rinse 15 ML MOUTHWASH MM SCH (21:14)
[2021-07-03] MEDS: *HR* Enoxaparin 40 MG/0.4 ML SYRINGE SQ SCH (21:14)
[2021-07-04] MEDS: Ipratropium 1 PUFF INHALER IH SCH ×6 (03:55→23:28)
[2021-07-04 06:54] LABS: Hematocrit 41.5 % (35.3-44.9); Hemoglobin 13.2 g/dL (11.5-15.4); Immature Granulocytes % 0.7 % (0-4); Lymphocytes # 0.9 K/mcL (0.6-4.6); Lymphocytes % 28.6 %; Mean Corpuscular HGB Conc 31.8 g/dL (31.6-35.5); Mean Corpuscular Hemoglobin 25.7 pg (28.0-33.3); Mean Corpuscular Volume 80.9 fL (83.0-100.0); Mean Platelet Volume 10.1 fL (9.4-12.4); Monocytes # 0.2 K/mcL (0.0-1.3); Monocytes % 7.6 %; Neutrophils # 1.9 K/mcL (1.6-8.9); Platelet Count 201 K/mcL (140-400); Red Blood Count 5.13 M/mcL (3.82-4.97); Red Cell Distribution Width 16.7 % (11.5-14.5); Segmented Neutrophils % 63.1 %
[2021-07-04 06:55] LABS: INR 1.2; Prothrombin Time 13.7 Seconds (9.4-12.1)
[2021-07-04 07:14] LABS: Alanine Aminotransferase 52 Units/L (7-52); Albumin/Globulin Ratio 1.3 (1.1-2.2); Alkaline Phosphatase 61 Units/L (34-104); Aspartate Amino Transferase 65 Units/L (13-39); BUN/Creatinine Ratio 21 (6-26); Bilirubin,Total 0.4 mg/dL (0.3-1.0); Blood Urea Nitrogen 15 mg/dL (6-20); Calcium 8.7 mg/dL (8.6-10.3); Carbon Dioxide 28 mEq/L (23-29); Chloride 103 mEq/L (98-107); Globulin 3.2 g/dL (2.4-3.5); Glucose 125 mg/dL (70-105); Lactate Dehydrogenase 347 Units/L (140-271); Magnesium 2.4 mg/dL (1.6-2.6); Osmolality,Calculated 290 (280-300); Phosphorous 3.1 mg/dL (2.7-4.5); Potassium 4.3 mEq/L (3.5-5.1); Sodium 139 mEq/L (136-145); Total Protein 7.2 g/dL (6.4-8.9); eGFR For African Americans > 60 (> 60); eGFR For Non-African Americans > 60 (> 60)
[2021-07-04 07:29] LABS: Ferritin 250 ng/mL (10-120)
[2021-07-04] MEDS ORDERED: Remdesivir 200 MG in 0.9 % Sodium Chloride 100 ML IVPB ONE (07:55)
[2021-07-04 08:26] LABS: ABG Base Excess 2 mEq/L (-2 to 3); ABG HCO3 26 mEq/L (21-27); ABG Oxygen Saturation 85 % (95-98); ABG PCO2 37 mmHg (35-45); ABG PH 7.46 pH Units (7.32-7.45); ABG PO2 48 mmHg (85-104); ABG TCO2 27 mEq/L (20-26)
[2021-07-04] MEDS ORDERED: cefTRIAXone 1,000 MG in 0.9 % Sodium Chloride Mini Bag 100 ML IVPB SCH (09:00)
[2021-07-04] MEDS: Chlorhexidine Rinse 15 ML MOUTHWASH MM SCH ×2 (09:01→22:02)
[2021-07-04] MEDS: Furosemide 20 MG/2 ML VIAL IVP SCH (09:01)
[2021-07-04] MEDS: Lactobacillus 1 EACH CAP.SPRINK PO SCH ×2 (09:01→22:02)
[2021-07-04] MEDS: *HR* Enoxaparin 40 MG/0.4 ML SYRINGE SQ SCH ×2 (09:01→22:02)
[2021-07-04] MEDS: Cholecalciferol (D-3) 1,000 UNIT (25MCG) TABLET PO SCH (09:02)
[2021-07-04] MEDS: cefTRIAXone 1,000 MG in Water for inj. (sterile) 10 ML IVP SCH (09:02)
[2021-07-04] MEDS: Multivit/Ca/Min/Fe/FA 1 TAB TABLET PO SCH (09:02)
[2021-07-04 12:31] LABS: C-Reactive Protein 83 mg/L (Less than 10)
[2021-07-05 03:23] LABS: Hematocrit 41.3 % (35.3-44.9); Immature Granulocytes % 0.5 % (0-4); Lymphocytes # 0.7 K/mcL (0.6-4.6); Lymphocytes % 17.3 %; Mean Corpuscular HGB Conc 31.5 g/dL (31.6-35.5); Mean Corpuscular Hemoglobin 25.4 pg (28.0-33.3); Mean Corpuscular Volume 80.7 fL (83.0-100.0); Mean Platelet Volume 10.1 fL (9.4-12.4); Monocytes # 0.2 K/mcL (0.0-1.3); Monocytes % 3.8 %; Neutrophils # 3.3 K/mcL (1.6-8.9); Platelet Count 213 K/mcL (140-400); Red Blood Count 5.12 M/mcL (3.82-4.97); Red Cell Distribution Width 16.7 % (11.5-14.5); Segmented Neutrophils % 78.4 %; White Blood Count 4.2 K/mcL (4.3-11.1)
[2021-07-05 03:25] LABS: INR 1.2
[2021-07-05 03:42] LABS: Albumin 3.8 g/dL (3.5-5.7); Albumin/Globulin Ratio 1.1 (1.1-2.2); Bilirubin,Direct 0.1 mg/dL (0.0-0.2); Bilirubin,Indirect 0.3 mg/dL (0.0-1.0); Bilirubin,Total 0.4 mg/dL (0.3-1.0); Globulin 3.5 g/dL (2.4-3.5); Total Protein 7.3 g/dL (6.4-8.9)
[2021-07-05 03:43] LABS: Alanine Aminotransferase 53 Units/L (7-52); Albumin 3.8 g/dL (3.5-5.7); Albumin/Globulin Ratio 1.1 (1.1-2.2); Alkaline Phosphatase 58 Units/L (34-104); Aspartate Amino Transferase 63 Units/L (13-39); BUN/Creatinine Ratio 26 (6-26); Bilirubin,Total 0.4 mg/dL (0.3-1.0); Blood Urea Nitrogen 15 mg/dL (6-20); C-Reactive Protein 89 mg/L (Less than 10); Calcium 8.7 mg/dL (8.6-10.3); Carbon Dioxide 26 mEq/L (23-29); Chloride 103 mEq/L (98-107); Globulin 3.5 g/dL (2.4-3.5); Glucose 164 mg/dL (70-105); Lactate Dehydrogenase 386 Units/L (140-271); Osmolality,Calculated 292 (280-300); Potassium 3.9 mEq/L (3.5-5.1); Sodium 139 mEq/L (136-145); Total Protein 7.3 g/dL (6.4-8.9); eGFR For African Americans > 60 (> 60); eGFR For Non-African Americans > 60 (> 60)
[2021-07-05] MEDS: Ipratropium 1 PUFF INHALER IH SCH ×6 (03:48→23:41)
[2021-07-05 03:56] LABS: Ferritin 352 ng/mL (10-120)
[2021-07-05] MEDS: cefTRIAXone 1,000 MG in Water for inj. (sterile) 10 ML IVP SCH (09:30)
[2021-07-05] MEDS: *HR* Enoxaparin 40 MG/0.4 ML SYRINGE SQ SCH ×2 (09:34→20:00)
[2021-07-05] MEDS: Multivit/Ca/Min/Fe/FA 1 TAB TABLET PO SCH (09:34)
[2021-07-05] MEDS: Cholecalciferol (D-3) 1,000 UNIT (25MCG) TABLET PO SCH (09:35)
[2021-07-05] MEDS: Chlorhexidine Rinse 15 ML MOUTHWASH MM SCH ×2 (09:35→20:00)
[2021-07-05] MEDS: Dexamethasone Sodium Phos/PF 10 MG/ML VIAL IVP SCH (09:35)
[2021-07-05] MEDS: Furosemide 20 MG/2 ML VIAL IVP SCH (09:35)
[2021-07-05] MEDS: Lactobacillus 1 EACH CAP.SPRINK PO SCH ×2 (10:42→20:00)
[2021-07-05] MEDS: Remdesivir 100 MG in 0.9 % Sodium Chloride 100 ML IVPB SCH (11:22)
[2021-07-05] MEDS ORDERED: TOCILIZUMAB IVPB ONE (16:15)
[2021-07-05] MEDS ORDERED: SODIUM CHLORIDE 0.9% IVPB ONE (16:15)
[2021-07-05] MEDS: Acetaminophen 325 MG TABLET PO PRN (18:32)
[2021-07-06] MEDS: Ipratropium 1 PUFF INHALER IH SCH ×6 (04:04→23:46)
[2021-07-06 05:17] LABS: Basophils % 0.3 %; Hemoglobin 13.5 g/dL (11.5-15.4); Immature Granulocytes % 0.3 % (0-4); Lymphocytes # 0.7 K/mcL (0.6-4.6); Mean Corpuscular HGB Conc 31.4 g/dL (31.6-35.5); Mean Corpuscular Hemoglobin 25.2 pg (28.0-33.3); Mean Corpuscular Volume 80.2 fL (83.0-100.0); Mean Platelet Volume 10.1 fL (9.4-12.4); Monocytes # 0.2 K/mcL (0.0-1.3); Monocytes % 7.2 %; Neutrophils # 2.1 K/mcL (1.6-8.9); Platelet Count 225 K/mcL (140-400); Red Blood Count 5.36 M/mcL (3.82-4.97); Red Cell Distribution Width 16.8 % (11.5-14.5); Segmented Neutrophils % 70.2 %
[2021-07-06 05:27] LABS: INR 1.2; Prothrombin Time 13.6 Seconds (9.4-12.1)
[2021-07-06 05:38] LABS: Albumin 3.8 g/dL (3.5-5.7); Albumin/Globulin Ratio 1.1 (1.1-2.2); Bilirubin,Direct 0.2 mg/dL (0.0-0.2); Bilirubin,Indirect 0.3 mg/dL (0.0-1.0); Bilirubin,Total 0.5 mg/dL (0.3-1.0); Globulin 3.4 g/dL (2.4-3.5); Total Protein 7.2 g/dL (6.4-8.9)
[2021-07-06 05:39] LABS: Platelet Estimate Normal (Normal)
[2021-07-06 05:49] LABS: Alanine Aminotransferase 51 Units/L (7-52); Albumin 3.6 g/dL (3.5-5.7); Alkaline Phosphatase 56 Units/L (34-104); Aspartate Amino Transferase 54 Units/L (13-39); BUN/Creatinine Ratio 33 (6-26); Bilirubin,Total 0.4 mg/dL (0.3-1.0); Blood Urea Nitrogen 21 mg/dL (6-20); C-Reactive Protein 53 mg/L (Less than 10); Carbon Dioxide 28 mEq/L (23-29); Chloride 102 mEq/L (98-107); Globulin 3.5 g/dL (2.4-3.5); Glucose 152 mg/dL (70-105); Lactate Dehydrogenase 430 Units/L (140-271); Osmolality,Calculated 296 (280-300); Potassium 3.8 mEq/L (3.5-5.1); Sodium 140 mEq/L (136-145); Total Protein 7.1 g/dL (6.4-8.9); eGFR For African Americans > 60 (> 60); eGFR For Non-African Americans > 60 (> 60)
[2021-07-06 06:47] LABS: Ferritin 359 ng/mL (10-120)
[2021-07-06] MEDS: Remdesivir 100 MG in 0.9 % Sodium Chloride 100 ML IVPB SCH (09:51)
[2021-07-06] MEDS: Furosemide 20 MG/2 ML VIAL IVP SCH (09:54)
[2021-07-06] MEDS: Lactobacillus 1 EACH CAP.SPRINK PO SCH ×2 (09:55→22:01)
[2021-07-06] MEDS: Cholecalciferol (D-3) 1,000 UNIT (25MCG) TABLET PO SCH (09:55)
[2021-07-06] MEDS: Chlorhexidine Rinse 15 ML MOUTHWASH MM SCH ×2 (09:55→22:01)
[2021-07-06] MEDS: Multivit/Ca/Min/Fe/FA 1 TAB TABLET PO SCH (09:55)
[2021-07-06] MEDS: Dexamethasone Sodium Phos/PF 10 MG/ML VIAL IVP SCH (09:56)
[2021-07-06] MEDS: *HR* Enoxaparin 40 MG/0.4 ML SYRINGE SQ SCH ×2 (09:56→22:02)
[2021-07-06 12:04] LABS: ABG Base Excess 6 mEq/L (-2 to 3); ABG HCO3 31 mEq/L (21-27); ABG Oxygen Saturation 94 % (95-98); ABG PCO2 46 mmHg (35-45); ABG PH 7.44 pH Units (7.32-7.45); ABG PO2 69 mmHg (85-104); ABG TCO2 32 mEq/L (20-26); Blood Gas VT 500 cc
[2021-07-07] MEDS: Ipratropium 1 PUFF INHALER IH SCH ×5 (04:42→20:31)
[2021-07-07 07:22] LABS: Hematocrit 41.5 % (35.3-44.9); Hemoglobin 13.4 g/dL (11.5-15.4); Mean Corpuscular HGB Conc 32.3 g/dL (31.6-35.5); Mean Corpuscular Hemoglobin 25.8 pg (28.0-33.3); Platelet Count 237 K/mcL (140-400); Red Blood Count 5.19 M/mcL (3.82-4.97); Red Cell Distribution Width 16.1 % (11.5-14.5); White Blood Count 3.4 K/mcL (4.3-11.1)
[2021-07-07 07:45] LABS: Albumin 3.6 g/dL (3.5-5.7); Albumin/Globulin Ratio 1.2 (1.1-2.2); Bilirubin,Direct 0.1 mg/dL (0.0-0.2); Bilirubin,Indirect 0.4 mg/dL (0.0-1.0); Bilirubin,Total 0.5 mg/dL (0.3-1.0); Globulin 3.1 g/dL (2.4-3.5); Total Protein 6.7 g/dL (6.4-8.9)
[2021-07-07 07:48] LABS: Alanine Aminotransferase 48 Units/L (7-52); Albumin 3.6 g/dL (3.5-5.7); Albumin/Globulin Ratio 1.2 (1.1-2.2); Alkaline Phosphatase 53 Units/L (34-104); Aspartate Amino Transferase 49 Units/L (13-39); BUN/Creatinine Ratio 48 (6-26); Bilirubin,Total 0.5 mg/dL (0.3-1.0); Blood Urea Nitrogen 25 mg/dL (6-20); Carbon Dioxide 28 mEq/L (23-29); Chloride 103 mEq/L (98-107); Glucose 137 mg/dL (70-105); Lactate Dehydrogenase 403 Units/L (140-271); Magnesium 2.6 mg/dL (1.6-2.6); Osmolality,Calculated 299 (280-300); Potassium 3.7 mEq/L (3.5-5.1); Sodium 141 mEq/L (136-145); Total Protein 6.6 g/dL (6.4-8.9); eGFR For African Americans > 60 (> 60); eGFR For Non-African Americans > 60 (> 60)
[2021-07-07 07:55] LABS: Lymphocytes # 0.6 K/mcL (0.6-4.6); Monocytes # 0.1 K/mcL (0.0-1.3); Neutrophils # 2.7 K/mcL (1.6-8.9); Platelet Estimate Normal (Normal)
[2021-07-07 08:01] LABS: Ferritin 303 ng/mL (10-120)
[2021-07-07] MEDS: Remdesivir 100 MG in 0.9 % Sodium Chloride 100 ML IVPB SCH (08:02)
[2021-07-07] MEDS: Cholecalciferol (D-3) 1,000 UNIT (25MCG) TABLET PO SCH (08:03)
[2021-07-07] MEDS: Chlorhexidine Rinse 15 ML MOUTHWASH MM SCH ×2 (08:03→21:31)
[2021-07-07] MEDS: Furosemide 20 MG/2 ML VIAL IVP SCH (08:03)
[2021-07-07] MEDS: Multivit/Ca/Min/Fe/FA 1 TAB TABLET PO SCH (08:03)
[2021-07-07] MEDS: Lactobacillus 1 EACH CAP.SPRINK PO SCH ×2 (08:03→21:31)
[2021-07-07] MEDS: Dexamethasone Sodium Phos/PF 10 MG/ML VIAL IVP SCH (08:03)
[2021-07-07] MEDS: *HR* Enoxaparin 40 MG/0.4 ML SYRINGE SQ SCH ×2 (08:03→21:31)
[2021-07-07 08:49] LABS: Calcium 8.6 mg/dL (8.6-10.3)
[2021-07-07 08:51] LABS: C-Reactive Protein 26 mg/L (Less than 10)
[2021-07-07] MEDS: Melatonin 3 MG TABLET PO PRN (21:31)
[2021-07-08] MEDS: Ipratropium 1 PUFF INHALER IH SCH ×7 (00:26→23:13)
[2021-07-08 07:50] LABS: Hematocrit 41.7 % (35.3-44.9); Hemoglobin 13.2 g/dL (11.5-15.4); Immature Granulocytes % 0.4 % (0-4); Lymphocytes # 1.1 K/mcL (0.6-4.6); Lymphocytes % 22.5 %; Mean Corpuscular HGB Conc 31.7 g/dL (31.6-35.5); Mean Corpuscular Hemoglobin 25.1 pg (28.0-33.3); Mean Corpuscular Volume 79.4 fL (83.0-100.0); Mean Platelet Volume 9.8 fL (9.4-12.4); Monocytes # 0.4 K/mcL (0.0-1.3); Monocytes % 7.4 %; Neutrophils # 3.5 K/mcL (1.6-8.9); Platelet Count 267 K/mcL (140-400); Red Blood Count 5.25 M/mcL (3.82-4.97); Red Cell Distribution Width 15.9 % (11.5-14.5); Segmented Neutrophils % 69.7 %
[2021-07-08 08:17] LABS: Alanine Aminotransferase 50 Units/L (7-52); Albumin 3.6 g/dL (3.5-5.7); Albumin/Globulin Ratio 1.2 (1.1-2.2); Alkaline Phosphatase 54 Units/L (34-104); Aspartate Amino Transferase 39 Units/L (13-39); BUN/Creatinine Ratio 47 (6-26); Bilirubin,Direct 0.1 mg/dL (0.0-0.2); Bilirubin,Indirect 0.5 mg/dL (0.0-1.0); Bilirubin,Total 0.6 mg/dL (0.3-1.0); Blood Urea Nitrogen 27 mg/dL (6-20); Carbon Dioxide 32 mEq/L (23-29); Chloride 102 mEq/L (98-107); Globulin 2.9 g/dL (2.4-3.5); Glucose 125 mg/dL (70-105); Lactate Dehydrogenase 389 Units/L (140-271); Magnesium 2.7 mg/dL (1.6-2.6); Osmolality,Calculated 301 (280-300); Phosphorous 4.2 mg/dL (2.7-4.5); Potassium 3.7 mEq/L (3.5-5.1); Sodium 142 mEq/L (136-145); Total Protein 6.5 g/dL (6.4-8.9); eGFR For African Americans > 60 (> 60); eGFR For Non-African Americans > 60 (> 60)
[2021-07-08 08:29] LABS: Ferritin 228 ng/mL (10-120)
[2021-07-08] MEDS: Remdesivir 100 MG in 0.9 % Sodium Chloride 100 ML IVPB SCH (08:45)
[2021-07-08] MEDS: Dexamethasone Sodium Phos/PF 10 MG/ML VIAL IVP SCH (08:45)
[2021-07-08] MEDS: Furosemide 20 MG/2 ML VIAL IVP SCH (08:45)
[2021-07-08] MEDS: Multivit/Ca/Min/Fe/FA 1 TAB TABLET PO SCH (08:46)
[2021-07-08] MEDS: Cholecalciferol (D-3) 1,000 UNIT (25MCG) TABLET PO SCH (08:46)
[2021-07-08] MEDS: Lactobacillus 1 EACH CAP.SPRINK PO SCH ×2 (08:46→21:53)
[2021-07-08] MEDS: Chlorhexidine Rinse 15 ML MOUTHWASH MM SCH ×2 (08:46→21:52)
[2021-07-08] MEDS: *HR* Enoxaparin 40 MG/0.4 ML SYRINGE SQ SCH ×2 (08:46→21:53)
[2021-07-08 10:56] LABS: C-Reactive Protein 15 mg/L (Less than 10); Calcium 8.9 mg/dL (8.6-10.3)
[2021-07-08 11:24] LABS: ABG Base Excess 6 mEq/L (-2 to 3); ABG HCO3 31 mEq/L (21-27); ABG Oxygen Saturation 97 % (95-98); ABG PCO2 43 mmHg (35-45); ABG PH 7.46 pH Units (7.32-7.45); ABG PO2 82 mmHg (85-104); ABG TCO2 32 mEq/L (20-26)
[2021-07-08] MEDS: Nystatin POWDER 30 GM BOTTLE TP SCH (21:53)
[2021-07-08] MEDS: Melatonin 3 MG TABLET PO PRN (21:53)
[2021-07-09 01:27] LABS: Hematocrit 42.8 % (35.3-44.9); Hemoglobin 13.7 g/dL (11.5-15.4); Immature Granulocytes % 0.4 % (0-4); Lymphocytes # 0.8 K/mcL (0.6-4.6); Lymphocytes % 14.2 %; Mean Corpuscular Hemoglobin 25.4 pg (28.0-33.3); Mean Corpuscular Volume 79.4 fL (83.0-100.0); Mean Platelet Volume 9.9 fL (9.4-12.4); Monocytes # 0.4 K/mcL (0.0-1.3); Monocytes % 6.8 %; Neutrophils # 4.4 K/mcL (1.6-8.9); Platelet Count 257 K/mcL (140-400); Red Blood Count 5.39 M/mcL (3.82-4.97); Red Cell Distribution Width 15.7 % (11.5-14.5); Segmented Neutrophils % 78.6 %; White Blood Count 5.6 K/mcL (4.3-11.1)
[2021-07-09 01:44] LABS: Albumin 3.5 g/dL (3.5-5.7); Albumin/Globulin Ratio 1.3 (1.1-2.2); Bilirubin,Direct 0.2 mg/dL (0.0-0.2); Bilirubin,Indirect 0.5 mg/dL (0.0-1.0); Bilirubin,Total 0.7 mg/dL (0.3-1.0); Globulin 2.7 g/dL (2.4-3.5); Total Protein 6.2 g/dL (6.4-8.9)
[2021-07-09 01:48] LABS: Alanine Aminotransferase 50 Units/L (7-52); Albumin 3.5 g/dL (3.5-5.7); Albumin/Globulin Ratio 1.3 (1.1-2.2); Alkaline Phosphatase 53 Units/L (34-104); Aspartate Amino Transferase 35 Units/L (13-39); BUN/Creatinine Ratio 52 (6-26); Bilirubin,Total 0.7 mg/dL (0.3-1.0); Blood Urea Nitrogen 27 mg/dL (6-20); C-Reactive Protein 10 mg/L (Less than 10); Calcium 8.7 mg/dL (8.6-10.3); Carbon Dioxide 30 mEq/L (23-29); Chloride 101 mEq/L (98-107); Globulin 2.7 g/dL (2.4-3.5); Glucose 165 mg/dL (70-105); Lactate Dehydrogenase 408 Units/L (140-271); Magnesium 2.5 mg/dL (1.6-2.6); Osmolality,Calculated 299 (280-300); Phosphorous 4.6 mg/dL (2.7-4.5); Potassium 3.8 mEq/L (3.5-5.1); Sodium 140 mEq/L (136-145); Total Protein 6.2 g/dL (6.4-8.9); eGFR For African Americans > 60 (> 60); eGFR For Non-African Americans > 60 (> 60)
[2021-07-09 02:04] LABS: Ferritin 220 ng/mL (10-120)
[2021-07-09] MEDS: Ipratropium 1 PUFF INHALER IH SCH ×6 (03:02→23:15)
[2021-07-09] MEDS: Nystatin Cream 15 GM TUBE TP SCH ×4 (03:38→21:20)
[2021-07-09] MEDS: Lactobacillus 1 EACH CAP.SPRINK PO SCH ×2 (09:59→21:19)
[2021-07-09] MEDS: Multivit/Ca/Min/Fe/FA 1 TAB TABLET PO SCH (09:59)
[2021-07-09] MEDS: Cholecalciferol (D-3) 1,000 UNIT (25MCG) TABLET PO SCH (10:00)
[2021-07-09] MEDS: *HR* Enoxaparin 40 MG/0.4 ML SYRINGE SQ SCH ×2 (10:00→21:19)
[2021-07-09] MEDS: Chlorhexidine Rinse 15 ML MOUTHWASH MM SCH ×2 (10:00→21:19)
[2021-07-09] MEDS: Furosemide 20 MG/2 ML VIAL IVP SCH (10:00)
[2021-07-09] MEDS: Dexamethasone Sodium Phos/PF 10 MG/ML VIAL IVP SCH (10:01)
[2021-07-09] MEDS: Nystatin POWDER 30 GM BOTTLE TP SCH ×2 (10:02→21:21)
[2021-07-09] MEDS ORDERED: Furosemide 20 MG/2 ML VIAL IVP ONE (11:26)
[2021-07-09] MEDS ORDERED: Lidocaine -MPF 1% 5 ML AMPUL INFILT ONE (12:03)
[2021-07-10] MEDS: Ipratropium 1 PUFF INHALER IH SCH ×6 (03:18→23:01)
[2021-07-10 05:02] LABS: Basophils % 0.1 %; Hematocrit 44.2 % (35.3-44.9); Hemoglobin 13.9 g/dL (11.5-15.4); Immature Granulocytes % 0.7 % (0-4); Lymphocytes # 1.1 K/mcL (0.6-4.6); Lymphocytes % 14.9 %; Mean Corpuscular HGB Conc 31.4 g/dL (31.6-35.5); Mean Corpuscular Hemoglobin 25.2 pg (28.0-33.3); Mean Corpuscular Volume 80.2 fL (83.0-100.0); Mean Platelet Volume 9.7 fL (9.4-12.4); Monocytes # 0.5 K/mcL (0.0-1.3); Monocytes % 6.3 %; Neutrophils # 5.7 K/mcL (1.6-8.9); Platelet Count 265 K/mcL (140-400); Red Blood Count 5.51 M/mcL (3.82-4.97); Red Cell Distribution Width 15.4 % (11.5-14.5); White Blood Count 7.3 K/mcL (4.3-11.1)
[2021-07-10 05:28] LABS: Alanine Aminotransferase 41 Units/L (7-52); Albumin 3.6 g/dL (3.5-5.7); Albumin/Globulin Ratio 1.4 (1.1-2.2); Alkaline Phosphatase 53 Units/L (34-104); Aspartate Amino Transferase 26 Units/L (13-39); BUN/Creatinine Ratio 39 (6-26); Bilirubin,Total 0.7 mg/dL (0.3-1.0); Blood Urea Nitrogen 28 mg/dL (6-20); C-Reactive Protein < 5 mg/L (Less than 10); Calcium 8.8 mg/dL (8.6-10.3); Carbon Dioxide 33 mEq/L (23-29); Chloride 97 mEq/L (98-107); Globulin 2.6 g/dL (2.4-3.5); Glucose 129 mg/dL (70-105); Lactate Dehydrogenase 423 Units/L (140-271); Magnesium 2.5 mg/dL (1.6-2.6); Osmolality,Calculated 293 (280-300); Phosphorous 4.4 mg/dL (2.7-4.5); Potassium 3.7 mEq/L (3.5-5.1); Sodium 138 mEq/L (136-145); Total Protein 6.2 g/dL (6.4-8.9); eGFR For African Americans > 60 (> 60); eGFR For Non-African Americans > 60 (> 60)
[2021-07-10 05:45] LABS: Ferritin 218 ng/mL (10-120)
[2021-07-10] MEDS: Furosemide 40 MG/4 ML VIAL IVP SCH (08:31)
[2021-07-10] MEDS: Cholecalciferol (D-3) 1,000 UNIT (25MCG) TABLET PO SCH (08:32)
[2021-07-10] MEDS: *HR* Enoxaparin 40 MG/0.4 ML SYRINGE SQ SCH ×2 (08:32→21:37)
[2021-07-10] MEDS: Lactobacillus 1 EACH CAP.SPRINK PO SCH ×2 (08:32→21:36)
[2021-07-10] MEDS: Dexamethasone Sodium Phos/PF 10 MG/ML VIAL IVP SCH (08:32)
[2021-07-10] MEDS: Multivit/Ca/Min/Fe/FA 1 TAB TABLET PO SCH (08:32)
[2021-07-10] MEDS: Chlorhexidine Rinse 15 ML MOUTHWASH MM SCH ×2 (08:32→21:36)
[2021-07-10] MEDS: Nystatin Cream 15 GM TUBE TP SCH ×2 (09:10→21:36)
[2021-07-10] MEDS: Nystatin POWDER 30 GM BOTTLE TP SCH ×2 (09:10→21:38)
[2021-07-11] MEDS: Ipratropium 1 PUFF INHALER IH SCH ×6 (04:06→23:32)
[2021-07-11 05:48] LABS: Basophils % 0.1 %; Eosinophils % 0.1 %; Hematocrit 43.6 % (35.3-44.9); Hemoglobin 14.1 g/dL (11.5-15.4); Immature Granulocytes % 0.8 % (0-4); Lymphocytes # 1.4 K/mcL (0.6-4.6); Lymphocytes % 14.4 %; Mean Corpuscular HGB Conc 32.3 g/dL (31.6-35.5); Mean Corpuscular Hemoglobin 25.4 pg (28.0-33.3); Mean Corpuscular Volume 78.6 fL (83.0-100.0); Mean Platelet Volume 9.7 fL (9.4-12.4); Monocytes # 0.5 K/mcL (0.0-1.3); Monocytes % 5.5 %; Neutrophils # 7.8 K/mcL (1.6-8.9); Platelet Count 248 K/mcL (140-400); Red Blood Count 5.55 M/mcL (3.82-4.97); Red Cell Distribution Width 15.4 % (11.5-14.5); Segmented Neutrophils % 79.1 %; White Blood Count 9.8 K/mcL (4.3-11.1)
[2021-07-11] MEDS ORDERED: Menthol 1 EACH LOZENGE PO PRN (05:53)
[2021-07-11 06:06] LABS: Alanine Aminotransferase 37 Units/L (7-52); Albumin 3.6 g/dL (3.5-5.7); Albumin/Globulin Ratio 1.3 (1.1-2.2); Alkaline Phosphatase 52 Units/L (34-104); Aspartate Amino Transferase 25 Units/L (13-39); BUN/Creatinine Ratio 42 (6-26); Bilirubin,Total 0.7 mg/dL (0.3-1.0); Blood Urea Nitrogen 29 mg/dL (6-20); Calcium 8.7 mg/dL (8.6-10.3); Carbon Dioxide 34 mEq/L (23-29); Chloride 98 mEq/L (98-107); Globulin 2.7 g/dL (2.4-3.5); Glucose 130 mg/dL (70-105); Lactate Dehydrogenase 401 Units/L (140-271); Magnesium 2.7 mg/dL (1.6-2.6); Osmolality,Calculated 296 (280-300); Potassium 3.5 mEq/L (3.5-5.1); Sodium 139 mEq/L (136-145); Total Protein 6.3 g/dL (6.4-8.9); eGFR For African Americans > 60 (> 60); eGFR For Non-African Americans > 60 (> 60)
[2021-07-11 06:18] LABS: Ferritin 250 ng/mL (10-120)
[2021-07-11] MEDS: Multivit/Ca/Min/Fe/FA 1 TAB TABLET PO SCH (07:56)
[2021-07-11] MEDS: Cholecalciferol (D-3) 1,000 UNIT (25MCG) TABLET PO SCH (07:56)
[2021-07-11] MEDS: Lactobacillus 1 EACH CAP.SPRINK PO SCH ×2 (07:56→20:35)
[2021-07-11] MEDS: Dexamethasone Sodium Phos/PF 10 MG/ML VIAL IVP SCH (07:56)
[2021-07-11] MEDS: Chlorhexidine Rinse 15 ML MOUTHWASH MM SCH ×2 (07:57→20:35)
[2021-07-11] MEDS: Furosemide 40 MG/4 ML VIAL IVP SCH (07:57)
[2021-07-11] MEDS: *HR* Enoxaparin 40 MG/0.4 ML SYRINGE SQ SCH ×2 (07:57→20:37)
[2021-07-11 09:37] LABS: C-Reactive Protein < 5 mg/L (Less than 10)
[2021-07-11] MEDS: Nystatin Cream 15 GM TUBE TP SCH ×3 (11:55→20:35)
[2021-07-11] MEDS: Nystatin POWDER 30 GM BOTTLE TP SCH ×2 (11:55→20:35)
[2021-07-12 04:28] LABS: Basophils % 0.1 %; Eosinophils % 0.1 %; Hematocrit 42.3 % (35.3-44.9); Hemoglobin 13.9 g/dL (11.5-15.4); Immature Granulocytes % 1.1 % (0-4); Lymphocytes # 1.6 K/mcL (0.6-4.6); Mean Corpuscular HGB Conc 32.9 g/dL (31.6-35.5); Mean Corpuscular Hemoglobin 25.8 pg (28.0-33.3); Mean Corpuscular Volume 78.6 fL (83.0-100.0); Mean Platelet Volume 10.6 fL (9.4-12.4); Monocytes # 0.6 K/mcL (0.0-1.3); Monocytes % 5.1 %; Platelet Count 238 K/mcL (140-400); Red Blood Count 5.38 M/mcL (3.82-4.97); Red Cell Distribution Width 15.3 % (11.5-14.5); Segmented Neutrophils % 80.6 %; White Blood Count 12.4 K/mcL (4.3-11.1)
[2021-07-12] MEDS: Ipratropium 1 PUFF INHALER IH SCH ×6 (04:40→23:15)
[2021-07-12 04:51] LABS: Alanine Aminotransferase 31 Units/L (7-52); Albumin 3.3 g/dL (3.5-5.7); Albumin/Globulin Ratio 1.2 (1.1-2.2); Alkaline Phosphatase 49 Units/L (34-104); Aspartate Amino Transferase 21 Units/L (13-39); BUN/Creatinine Ratio 43 (6-26); Bilirubin,Total 0.7 mg/dL (0.3-1.0); Blood Urea Nitrogen 27 mg/dL (6-20); C-Reactive Protein < 5 mg/L (Less than 10); Calcium 8.9 mg/dL (8.6-10.3); Carbon Dioxide 34 mEq/L (23-29); Chloride 97 mEq/L (98-107); Globulin 2.8 g/dL (2.4-3.5); Glucose 142 mg/dL (70-105); Lactate Dehydrogenase 386 Units/L (140-271); Magnesium 2.4 mg/dL (1.6-2.6); Osmolality,Calculated 296 (280-300); Phosphorous 4.1 mg/dL (2.7-4.5); Potassium 3.4 mEq/L (3.5-5.1); Sodium 139 mEq/L (136-145); Total Protein 6.1 g/dL (6.4-8.9); eGFR For African Americans > 60 (> 60); eGFR For Non-African Americans > 60 (> 60)
[2021-07-12 05:09] LABS: Ferritin 236 ng/mL (10-120)
[2021-07-12] MEDS: Multivit/Ca/Min/Fe/FA 1 TAB TABLET PO SCH (08:01)
[2021-07-12] MEDS: Chlorhexidine Rinse 15 ML MOUTHWASH MM SCH ×2 (08:01→20:18)
[2021-07-12] MEDS: Cholecalciferol (D-3) 1,000 UNIT (25MCG) TABLET PO SCH (08:01)
[2021-07-12] MEDS: Lactobacillus 1 EACH CAP.SPRINK PO SCH ×2 (08:01→20:18)
[2021-07-12] MEDS: Dexamethasone Sodium Phos/PF 10 MG/ML VIAL IVP SCH (08:02)
[2021-07-12] MEDS: *HR* Enoxaparin 40 MG/0.4 ML SYRINGE SQ SCH ×2 (08:06→20:17)
[2021-07-12] MEDS: Nystatin Cream 15 GM TUBE TP SCH ×4 (08:12→22:27)
[2021-07-12] MEDS: Nystatin POWDER 30 GM BOTTLE TP SCH ×2 (08:13→22:27)
[2021-07-12] MEDS: Furosemide 40 MG/4 ML VIAL IVP SCH (08:14)
[2021-07-12] MEDS ORDERED: Potassium Chloride Elixir 20 MEQ/15 ML UDC PO ONE (10:27)
[2021-07-12] MEDS: *HR* HYDROcodone/Acet 5/325 mg TABLET PO PRN (22:02)
[2021-07-13] MEDS: Ipratropium 1 PUFF INHALER IH SCH ×6 (03:42→23:57)
[2021-07-13] MEDS: Lactobacillus 1 EACH CAP.SPRINK PO SCH ×2 (08:19→20:48)
[2021-07-13] MEDS: Chlorhexidine Rinse 15 ML MOUTHWASH MM SCH ×2 (08:19→20:49)
[2021-07-13] MEDS: Cholecalciferol (D-3) 1,000 UNIT (25MCG) TABLET PO SCH (08:20)
[2021-07-13] MEDS: Nystatin Cream 15 GM TUBE TP SCH ×3 (08:20→21:05)
[2021-07-13] MEDS: Nystatin POWDER 30 GM BOTTLE TP SCH ×2 (08:20→21:05)
[2021-07-13] MEDS: *HR* Enoxaparin 40 MG/0.4 ML SYRINGE SQ SCH ×2 (08:20→20:49)
[2021-07-13] MEDS: Multivit/Ca/Min/Fe/FA 1 TAB TABLET PO SCH (08:20)
[2021-07-13] MEDS: Furosemide 40 MG/4 ML VIAL IVP SCH (08:20)
[2021-07-13 08:51] LABS: Basophils % 0.2 %; Eosinophils % 0.3 %; Hematocrit 44.8 % (35.3-44.9); Hemoglobin 14.8 g/dL (11.5-15.4); Immature Granulocytes % 1.4 % (0-4); Lymphocytes # 2.3 K/mcL (0.6-4.6); Lymphocytes % 17.7 %; Mean Corpuscular Hemoglobin 26.1 pg (28.0-33.3); Mean Platelet Volume 10.3 fL (9.4-12.4); Monocytes # 0.7 K/mcL (0.0-1.3); Neutrophils # 9.9 K/mcL (1.6-8.9); Platelet Count 222 K/mcL (140-400); Red Blood Count 5.67 M/mcL (3.82-4.97); Red Cell Distribution Width 15.7 % (11.5-14.5); Segmented Neutrophils % 75.4 %; White Blood Count 13.2 K/mcL (4.3-11.1)
[2021-07-13 09:13] LABS: Alanine Aminotransferase 26 Units/L (7-52); Albumin 3.6 g/dL (3.5-5.7); Albumin/Globulin Ratio 1.3 (1.1-2.2); Alkaline Phosphatase 52 Units/L (34-104); Aspartate Amino Transferase 21 Units/L (13-39); BUN/Creatinine Ratio 39 (6-26); Bilirubin,Total 0.8 mg/dL (0.3-1.0); Blood Urea Nitrogen 30 mg/dL (6-20); Calcium 9.2 mg/dL (8.6-10.3); Carbon Dioxide 35 mEq/L (23-29); Chloride 97 mEq/L (98-107); Globulin 2.7 g/dL (2.4-3.5); Glucose 113 mg/dL (70-105); Osmolality,Calculated 295 (280-300); Potassium 3.6 mEq/L (3.5-5.1); Sodium 139 mEq/L (136-145); Total Protein 6.3 g/dL (6.4-8.9); eGFR For African Americans > 60 (> 60); eGFR For Non-African Americans > 60 (> 60)
[2021-07-14] MEDS: Ipratropium 1 PUFF INHALER IH SCH ×6 (04:11→23:48)
[2021-07-14 05:52] LABS: Hematocrit 42.8 % (35.3-44.9); Hemoglobin 14.1 g/dL (11.5-15.4); Mean Corpuscular HGB Conc 32.9 g/dL (31.6-35.5); Mean Corpuscular Hemoglobin 26.1 pg (28.0-33.3); Mean Corpuscular Volume 79.1 fL (83.0-100.0); Mean Platelet Volume 10.7 fL (9.4-12.4); Platelet Count 217 K/mcL (140-400); Red Blood Count 5.41 M/mcL (3.82-4.97); Red Cell Distribution Width 15.7 % (11.5-14.5); White Blood Count 12.7 K/mcL (4.3-11.1)
[2021-07-14 06:10] LABS: BUN/Creatinine Ratio 38 (6-26); Blood Urea Nitrogen 26 mg/dL (6-20); Carbon Dioxide 35 mEq/L (23-29); Chloride 95 mEq/L (98-107); Glucose 167 mg/dL (70-105); Osmolality,Calculated 297 (280-300); Potassium 3.1 mEq/L (3.5-5.1); Sodium 139 mEq/L (136-145); eGFR For African Americans > 60 (> 60); eGFR For Non-African Americans > 60 (> 60)
[2021-07-14] MEDS: *HR* Enoxaparin 40 MG/0.4 ML SYRINGE SQ SCH ×2 (07:54→20:23)
[2021-07-14] MEDS: Furosemide 40 MG/4 ML VIAL IVP SCH (07:55)
[2021-07-14] MEDS: Lactobacillus 1 EACH CAP.SPRINK PO SCH ×2 (07:56→20:22)
[2021-07-14] MEDS: Cholecalciferol (D-3) 1,000 UNIT (25MCG) TABLET PO SCH (07:56)
[2021-07-14] MEDS: Multivit/Ca/Min/Fe/FA 1 TAB TABLET PO SCH (07:56)
[2021-07-14] MEDS: Nystatin Cream 15 GM TUBE TP SCH ×3 (07:57→20:28)
[2021-07-14] MEDS: Chlorhexidine Rinse 15 ML MOUTHWASH MM SCH ×2 (07:57→20:22)
[2021-07-14] MEDS: Nystatin POWDER 30 GM BOTTLE TP SCH ×2 (07:57→20:28)
[2021-07-14] MEDS: Melatonin 3 MG TABLET PO PRN (20:23)
[2021-07-15] MEDS: Ipratropium 1 PUFF INHALER IH SCH ×6 (04:21→23:34)
[2021-07-15 07:01] LABS: BUN/Creatinine Ratio 41 (6-26); Blood Urea Nitrogen 29 mg/dL (6-20); Calcium 9.3 mg/dL (8.6-10.3); Carbon Dioxide 36 mEq/L (23-29); Chloride 96 mEq/L (98-107); Glucose 139 mg/dL (70-105); Osmolality,Calculated 296 (280-300); Potassium 3.8 mEq/L (3.5-5.1); Sodium 139 mEq/L (136-145); eGFR For African Americans > 60 (> 60); eGFR For Non-African Americans > 60 (> 60)
[2021-07-15] MEDS: Chlorhexidine Rinse 15 ML MOUTHWASH MM SCH ×2 (08:33→21:34)
[2021-07-15] MEDS: Furosemide 40 MG/4 ML VIAL IVP SCH (08:33)
[2021-07-15] MEDS: Cholecalciferol (D-3) 1,000 UNIT (25MCG) TABLET PO SCH (08:34)
[2021-07-15] MEDS: Lactobacillus 1 EACH CAP.SPRINK PO SCH ×2 (08:34→21:33)
[2021-07-15] MEDS: Multivit/Ca/Min/Fe/FA 1 TAB TABLET PO SCH (08:34)
[2021-07-15] MEDS: *HR* Enoxaparin 40 MG/0.4 ML SYRINGE SQ SCH ×2 (08:38→21:34)
[2021-07-15] MEDS: Nystatin Cream 15 GM TUBE TP SCH ×2 (11:49→17:15)
[2021-07-15] MEDS: Nystatin POWDER 30 GM BOTTLE TP SCH (11:49)
[2021-07-15 12:36] LABS: Hematocrit 45.2 % (35.3-44.9); Hemoglobin 14.6 g/dL (11.5-15.4); Mean Corpuscular HGB Conc 32.3 g/dL (31.6-35.5); Mean Corpuscular Volume 80.4 fL (83.0-100.0); Mean Platelet Volume 11.6 fL (9.4-12.4); Platelet Count 223 K/mcL (140-400); Red Blood Count 5.62 M/mcL (3.82-4.97); Red Cell Distribution Width 16.1 % (11.5-14.5); White Blood Count 14.6 K/mcL (4.3-11.1)
[2021-07-15] MEDS: Melatonin 3 MG TABLET PO PRN (21:33)
[2021-07-16] MEDS: Nystatin POWDER 30 GM BOTTLE TP SCH ×3 (01:50→20:12)
[2021-07-16] MEDS: Nystatin Cream 15 GM TUBE TP SCH ×4 (01:50→20:12)
[2021-07-16] MEDS: Ipratropium 1 PUFF INHALER IH SCH ×6 (03:23→23:13)
[2021-07-16 03:53] LABS: Hemoglobin 14.6 g/dL (11.5-15.4); Mean Corpuscular HGB Conc 33.2 g/dL (31.6-35.5); Mean Corpuscular Hemoglobin 26.3 pg (28.0-33.3); Mean Corpuscular Volume 79.1 fL (83.0-100.0); Mean Platelet Volume 10.1 fL (9.4-12.4); Platelet Count 193 K/mcL (140-400); Red Blood Count 5.56 M/mcL (3.82-4.97); Red Cell Distribution Width 15.7 % (11.5-14.5)
[2021-07-16 04:07] LABS: BUN/Creatinine Ratio 37 (6-26); Blood Urea Nitrogen 28 mg/dL (6-20); Calcium 8.9 mg/dL (8.6-10.3); Carbon Dioxide 35 mEq/L (23-29); Chloride 94 mEq/L (98-107); Glucose 158 mg/dL (70-105); Osmolality,Calculated 295 (280-300); Potassium 3.4 mEq/L (3.5-5.1); Sodium 138 mEq/L (136-145); eGFR For African Americans > 60 (> 60); eGFR For Non-African Americans > 60 (> 60)
[2021-07-16] MEDS: Chlorhexidine Rinse 15 ML MOUTHWASH MM SCH ×2 (08:40→20:11)
[2021-07-16] MEDS: Multivit/Ca/Min/Fe/FA 1 TAB TABLET PO SCH (08:40)
[2021-07-16] MEDS: Acetaminophen 325 MG TABLET PO PRN ×2 (08:40→20:10)
[2021-07-16] MEDS: Cholecalciferol (D-3) 1,000 UNIT (25MCG) TABLET PO SCH (08:41)
[2021-07-16] MEDS: Furosemide 40 MG TABLET PO SCH (08:41)
[2021-07-16] MEDS: Lactobacillus 1 EACH CAP.SPRINK PO SCH ×2 (08:41→20:11)
[2021-07-16] MEDS: *HR* Enoxaparin 40 MG/0.4 ML SYRINGE SQ SCH ×2 (08:42→20:11)
[2021-07-17 01:12] LABS: Hematocrit 43.3 % (35.3-44.9); Mean Corpuscular HGB Conc 32.3 g/dL (31.6-35.5); Mean Corpuscular Hemoglobin 25.5 pg (28.0-33.3); Mean Platelet Volume 10.8 fL (9.4-12.4); Platelet Count 173 K/mcL (140-400); Red Blood Count 5.48 M/mcL (3.82-4.97); Red Cell Distribution Width 15.7 % (11.5-14.5); White Blood Count 12.7 K/mcL (4.3-11.1)
[2021-07-17 01:30] LABS: BUN/Creatinine Ratio 40 (6-26); Blood Urea Nitrogen 25 mg/dL (6-20); Calcium 8.8 mg/dL (8.6-10.3); Carbon Dioxide 32 mEq/L (23-29); Chloride 97 mEq/L (98-107); Glucose 144 mg/dL (70-105); Osmolality,Calculated 289 (280-300); Potassium 3.6 mEq/L (3.5-5.1); Sodium 136 mEq/L (136-145); eGFR For African Americans > 60 (> 60); eGFR For Non-African Americans > 60 (> 60)
[2021-07-17] MEDS: Ipratropium 1 PUFF INHALER IH SCH ×5 (04:10→20:11)
[2021-07-17] MEDS: Multivit/Ca/Min/Fe/FA 1 TAB TABLET PO SCH (08:30)
[2021-07-17] MEDS: Chlorhexidine Rinse 15 ML MOUTHWASH MM SCH ×2 (08:30→21:43)
[2021-07-17] MEDS: Cholecalciferol (D-3) 1,000 UNIT (25MCG) TABLET PO SCH (08:30)
[2021-07-17] MEDS: *HR* Enoxaparin 40 MG/0.4 ML SYRINGE SQ SCH ×2 (08:30→21:43)
[2021-07-17] MEDS: Furosemide 40 MG TABLET PO SCH (08:30)
[2021-07-17] MEDS: Lactobacillus 1 EACH CAP.SPRINK PO SCH ×2 (08:30→21:43)
[2021-07-17] MEDS: Nystatin POWDER 30 GM BOTTLE TP SCH ×2 (08:44→21:44)
[2021-07-17] MEDS: Nystatin Cream 15 GM TUBE TP SCH ×3 (08:45→21:44)
[2021-07-17] MEDS: Melatonin 3 MG TABLET PO PRN (21:43)
[2021-07-18] MEDS: Ipratropium 1 PUFF INHALER IH SCH ×7 (00:01→23:22)
[2021-07-18] MEDS: *HR* HYDROcodone/Acet 5/325 mg TABLET PO PRN ×2 (04:11→09:40)
[2021-07-18] MEDS: Lactobacillus 1 EACH CAP.SPRINK PO SCH ×2 (09:18→20:24)
[2021-07-18] MEDS: Chlorhexidine Rinse 15 ML MOUTHWASH MM SCH ×2 (09:18→20:24)
[2021-07-18] MEDS: Cholecalciferol (D-3) 1,000 UNIT (25MCG) TABLET PO SCH (09:18)
[2021-07-18] MEDS: Acetaminophen 325 MG TABLET PO PRN (09:18)
[2021-07-18] MEDS: *HR* Enoxaparin 40 MG/0.4 ML SYRINGE SQ SCH ×2 (09:19→20:24)
[2021-07-18] MEDS: Furosemide 40 MG TABLET PO SCH (09:19)
[2021-07-18] MEDS: Multivit/Ca/Min/Fe/FA 1 TAB TABLET PO SCH (09:19)
[2021-07-18] MEDS: Nystatin POWDER 30 GM BOTTLE TP SCH ×2 (11:27→20:24)
[2021-07-18] MEDS: Nystatin Cream 15 GM TUBE TP SCH ×3 (11:27→20:24)
[2021-07-18] MEDS: Melatonin 3 MG TABLET PO PRN (20:24)
[2021-07-19] MEDS: Ipratropium 1 PUFF INHALER IH SCH ×6 (03:15→23:18)
[2021-07-19 04:59] LABS: Hematocrit 40.4 % (35.3-44.9); Hemoglobin 13.6 g/dL (11.5-15.4); Mean Corpuscular HGB Conc 33.7 g/dL (31.6-35.5); Mean Corpuscular Hemoglobin 26.6 pg (28.0-33.3); Mean Corpuscular Volume 79.1 fL (83.0-100.0); Mean Platelet Volume 10.5 fL (9.4-12.4); Platelet Count 157 K/mcL (140-400); Red Blood Count 5.11 M/mcL (3.82-4.97); Red Cell Distribution Width 15.7 % (11.5-14.5); White Blood Count 10.5 K/mcL (4.3-11.1)
[2021-07-19 05:19] LABS: BUN/Creatinine Ratio 41 (6-26); Blood Urea Nitrogen 24 mg/dL (6-20); Calcium 8.8 mg/dL (8.6-10.3); Carbon Dioxide 33 mEq/L (23-29); Chloride 96 mEq/L (98-107); Glucose 147 mg/dL (70-105); Magnesium 2.4 mg/dL (1.6-2.6); Osmolality,Calculated 289 (280-300); Potassium 3.4 mEq/L (3.5-5.1); Sodium 136 mEq/L (136-145); eGFR For African Americans > 60 (> 60); eGFR For Non-African Americans > 60 (> 60)
[2021-07-19] MEDS: *HR* Enoxaparin 40 MG/0.4 ML SYRINGE SQ SCH ×2 (09:43→20:25)
[2021-07-19] MEDS: Chlorhexidine Rinse 15 ML MOUTHWASH MM SCH ×2 (09:43→20:25)
[2021-07-19] MEDS: Multivit/Ca/Min/Fe/FA 1 TAB TABLET PO SCH (09:44)
[2021-07-19] MEDS: Lactobacillus 1 EACH CAP.SPRINK PO SCH ×2 (09:44→20:25)
[2021-07-19] MEDS: Acetaminophen 325 MG TABLET PO PRN ×2 (09:45→14:56)
[2021-07-19] MEDS: Cholecalciferol (D-3) 1,000 UNIT (25MCG) TABLET PO SCH (09:45)
[2021-07-19] MEDS: *HR* HYDROcodone/Acet 5/325 mg TABLET PO PRN ×2 (09:45→14:56)
[2021-07-19] MEDS: Furosemide 40 MG TABLET PO SCH (09:46)
[2021-07-19] MEDS: Nystatin Cream 15 GM TUBE TP SCH ×3 (11:35→20:26)
[2021-07-19] MEDS: Nystatin POWDER 30 GM BOTTLE TP SCH ×2 (11:35→14:55)
[2021-07-20] MEDS: Ipratropium 1 PUFF INHALER IH SCH ×6 (04:09→21:36)
[2021-07-20] MEDS: *HR* HYDROcodone/Acet 5/325 mg TABLET PO PRN (05:10)
[2021-07-20] MEDS: Chlorhexidine Rinse 15 ML MOUTHWASH MM SCH ×2 (09:45→21:00)
[2021-07-20] MEDS: *HR* Enoxaparin 40 MG/0.4 ML SYRINGE SQ SCH ×2 (09:45→21:01)
[2021-07-20] MEDS: Multivit/Ca/Min/Fe/FA 1 TAB TABLET PO SCH (09:45)
[2021-07-20] MEDS: Furosemide 40 MG TABLET PO SCH (09:46)
[2021-07-20] MEDS: Lactobacillus 1 EACH CAP.SPRINK PO SCH ×2 (09:46→21:00)
[2021-07-20] MEDS: Cholecalciferol (D-3) 1,000 UNIT (25MCG) TABLET PO SCH (09:46)
[2021-07-20] MEDS: Nystatin Cream 15 GM TUBE TP SCH ×3 (09:58→21:02)
[2021-07-20] MEDS: Nystatin POWDER 30 GM BOTTLE TP SCH ×2 (09:58→21:01)
[2021-07-20] MEDS ORDERED: *HR* LORazepam 2 MG/ML VIAL IVP PRN (10:31)
[2021-07-20] MEDS ORDERED: Morphine Sulfate Oral CONC 10 MG/0.5 ML ORAL.SYG SL PRN (15:36)
[2021-07-20] MEDS: *HR* LORazepam 2 MG/ML VIAL IVP PRN ×2 (16:23→21:02)
[2021-07-20] MEDS ORDERED: Morphine Sulfate 2 MG/ML SYRINGE IVP ONE (18:18)
[2021-07-20] MEDS ORDERED: *HR* FentaNYL (PF) 100 MCG/2 ML VIAL ONE (22:54)
[2021-07-20] MEDS ORDERED: *HR* FentaNYL (PF) 100 MCG/2 ML VIAL IVP ONE (23:03)
[2021-07-20] MEDS ORDERED: FentaNYL (PF) 1,000 MCG/100 ML IV.SOLN IVC SCH (23:45)
[2021-07-21 03:49] LABS: VBG Ionized Calcium 1.07 mmol/L (1.15-1.35)
[2021-07-21 03:49] LABS: Basophils % 0.1 %; Eosinophils # 0.1 K/mcL (0.0-0.6); Eosinophils % 0.7 %; Hematocrit 41.6 % (35.3-44.9); Hemoglobin 13.2 g/dL (11.5-15.4); Immature Granulocytes % 0.7 % (0-4); Lymphocytes # 1.4 K/mcL (0.6-4.6); Lymphocytes % 13.3 %; Mean Corpuscular HGB Conc 31.7 g/dL (31.6-35.5); Mean Corpuscular Hemoglobin 26.2 pg (28.0-33.3); Mean Corpuscular Volume 82.5 fL (83.0-100.0); Mean Platelet Volume 9.9 fL (9.4-12.4); Monocytes # 0.5 K/mcL (0.0-1.3); Neutrophils # 8.5 K/mcL (1.6-8.9); Platelet Count 131 K/mcL (140-400); Red Blood Count 5.04 M/mcL (3.82-4.97); Segmented Neutrophils % 80.2 %; White Blood Count 10.6 K/mcL (4.3-11.1)
[2021-07-21] MEDS: Ipratropium 1 PUFF INHALER IH SCH ×6 (03:49→23:11)
[2021-07-21 04:08] LABS: ABG Base Excess 6 mEq/L (-2 to 3); ABG HCO3 33 mEq/L (21-27); ABG Oxygen Saturation 94 % (95-98); ABG PCO2 55 mmHg (35-45); ABG PH 7.39 pH Units (7.32-7.45); ABG PO2 74 mmHg (85-104); ABG TCO2 35 mEq/L (20-26); Blood Gas VT 380 cc
[2021-07-21 04:09] LABS: BUN/Creatinine Ratio 36 (6-26); Blood Urea Nitrogen 29 mg/dL (6-20); Calcium 8.7 mg/dL (8.6-10.3); Carbon Dioxide 31 mEq/L (23-29); Chloride 99 mEq/L (98-107); Glucose 133 mg/dL (70-105); Magnesium 2.4 mg/dL (1.6-2.6); Osmolality,Calculated 294 (280-300); Phosphorous 5.2 mg/dL (2.7-4.5); Potassium 3.7 mEq/L (3.5-5.1); Sodium 138 mEq/L (136-145); eGFR For African Americans > 60 (> 60); eGFR For Non-African Americans > 60 (> 60)
[2021-07-21] MEDS: Norepinephrine 4 MG/254 ML IV.SOLN IVC SCH (04:09)
[2021-07-21] MEDS: FentaNYL (PF) 2,500 MCG/50 ML IV.SOLN IVC SCH ×2 (04:57→12:27)
[2021-07-21] MEDS: Lactobacillus 1 EACH CAP.SPRINK PO SCH ×2 (08:15→20:07)
[2021-07-21] MEDS: *HR* Enoxaparin 40 MG/0.4 ML SYRINGE SQ SCH ×2 (08:15→20:07)
[2021-07-21] MEDS: Multivit/Ca/Min/Fe/FA 1 TAB TABLET PO SCH (08:15)
[2021-07-21] MEDS: Pantoprazole 40 MG VIAL IVP SCH (08:15)
[2021-07-21] MEDS: Furosemide 40 MG TABLET PO SCH (08:15)
[2021-07-21] MEDS: Chlorhexidine Rinse 15 ML MOUTHWASH MM SCH ×2 (08:16→20:07)
[2021-07-21] MEDS: Nystatin Cream 15 GM TUBE TP SCH ×3 (09:41→20:07)
[2021-07-21] MEDS: Nystatin POWDER 30 GM BOTTLE TP SCH ×2 (09:41→20:07)
[2021-07-21] MEDS ORDERED: *HR* Succinylcholine 200 MG/10 ML VIAL IVP ONE (11:18)
[2021-07-21] MEDS ORDERED: *HR* Etomidate 20 MG/10 ML AMPUL IVP ONE (11:18)
[2021-07-21] MEDS ORDERED: *HR* Propofol 200 MG/20 ML VIAL IVP ONE (11:18)
[2021-07-21] MEDS: Cholecalciferol (D-3) 1,000 UNIT (25MCG) TABLET PO SCH (15:10)
[2021-07-22] MEDS: FentaNYL (PF) 2,500 MCG/50 ML IV.SOLN IVC SCH ×2 (00:05→12:45)
[2021-07-22] MEDS: Ipratropium 1 PUFF INHALER IH SCH ×6 (03:15→23:27)
[2021-07-22] MEDS: Norepinephrine 4 MG/254 ML IV.SOLN IVC SCH ×2 (03:59→15:40)
[2021-07-22 04:46] LABS: ABG Base Excess 4 mEq/L (-2 to 3); ABG HCO3 30 mEq/L (21-27); ABG Oxygen Saturation 89 % (95-98); ABG PCO2 50 mmHg (35-45); ABG PH 7.39 pH Units (7.32-7.45); ABG PO2 58 mmHg (85-104); ABG TCO2 32 mEq/L (20-26); Blood Gas Modality AF; Blood Gas VT 350 cc
[2021-07-22 05:00] LABS: Basophils % 0.1 %; Eosinophils # 0.1 K/mcL (0.0-0.6); Eosinophils % 0.5 %; Hematocrit 41.4 % (35.3-44.9); Hemoglobin 13.6 g/dL (11.5-15.4); Immature Granulocytes % 0.9 % (0-4); Lymphocytes # 1.8 K/mcL (0.6-4.6); Lymphocytes % 15.8 %; Mean Corpuscular HGB Conc 32.9 g/dL (31.6-35.5); Mean Corpuscular Hemoglobin 26.7 pg (28.0-33.3); Mean Corpuscular Volume 81.3 fL (83.0-100.0); Mean Platelet Volume 10.7 fL (9.4-12.4); Monocytes # 0.6 K/mcL (0.0-1.3); Monocytes % 5.5 %; Neutrophils # 8.7 K/mcL (1.6-8.9); Platelet Count 153 K/mcL (140-400); Red Blood Count 5.09 M/mcL (3.82-4.97); Red Cell Distribution Width 16.2 % (11.5-14.5); Segmented Neutrophils % 77.2 %; White Blood Count 11.3 K/mcL (4.3-11.1)
[2021-07-22 05:20] LABS: Alanine Aminotransferase 47 Units/L (7-52); Albumin 3.4 g/dL (3.5-5.7); Albumin/Globulin Ratio 1.4 (1.1-2.2); Alkaline Phosphatase 60 Units/L (34-104); Aspartate Amino Transferase 78 Units/L (13-39); BUN/Creatinine Ratio 35 (6-26); Bilirubin,Total 0.6 mg/dL (0.3-1.0); Blood Urea Nitrogen 24 mg/dL (6-20); Carbon Dioxide 29 mEq/L (23-29); Chloride 97 mEq/L (98-107); Globulin 2.4 g/dL (2.4-3.5); Glucose 155 mg/dL (70-105); Osmolality,Calculated 291 (280-300); Potassium 3.7 mEq/L (3.5-5.1); Sodium 137 mEq/L (136-145); Total Protein 5.8 g/dL (6.4-8.9); eGFR For African Americans > 60 (> 60); eGFR For Non-African Americans > 60 (> 60)
[2021-07-22] MEDS: Chlorhexidine Rinse 15 ML MOUTHWASH MM SCH ×3 (07:32→21:27)
[2021-07-22] MEDS: Furosemide 40 MG TABLET PO SCH (07:33)
[2021-07-22] MEDS: Multivit/Ca/Min/Fe/FA 1 TAB TABLET PO SCH (07:33)
[2021-07-22] MEDS: Lactobacillus 1 EACH CAP.SPRINK PO SCH ×2 (07:33→21:27)
[2021-07-22] MEDS: Cholecalciferol (D-3) 1,000 UNIT (25MCG) TABLET PO SCH (07:33)
[2021-07-22] MEDS: *HR* Enoxaparin 40 MG/0.4 ML SYRINGE SQ SCH ×2 (07:33→21:27)
[2021-07-22] MEDS: Pantoprazole 40 MG VIAL IVP SCH (07:34)
[2021-07-22] MEDS: Nystatin POWDER 30 GM BOTTLE TP SCH ×2 (09:00→21:27)
[2021-07-22] MEDS: Nystatin Cream 15 GM TUBE TP SCH ×3 (12:18→21:30)
[2021-07-22] MEDS ORDERED: Artificial Tears SOLN 15 ML BOTTLE BOTH EYES PRN (12:29)
[2021-07-22] MEDS ORDERED: Dextrose Gel 15 GM/37.5 ML TUBE PO PRN ×2 (12:29)
[2021-07-22] MEDS ORDERED: D5% in Water 1,000 ML IVC PRN (12:29)
[2021-07-22] MEDS ORDERED: *HR* Dextrose 50 % in Water (Vial) 50 ML VIAL IVP PRN (12:29)
[2021-07-22 12:54] LABS: ABG Base Excess 6 mEq/L (-2 to 3); ABG HCO3 35 mEq/L (21-27); ABG Oxygen Saturation 81 % (95-98); ABG PCO2 71 mmHg (35-45); ABG PO2 52 mmHg (85-104); ABG TCO2 37 mEq/L (20-26); Blood Gas Modality ASSIST CONTROL; Blood Gas VT 310 cc
[2021-07-22] MEDS: Cisatracurium 200 MG in 0.9 % Sodium Chloride 180 ML IVC SCH ×2 (13:00→23:40)
[2021-07-22] MEDS: Artificial Tears SOLN 15 ML BOTTLE BOTH EYES SCH ×2 (15:37→21:26)
[2021-07-22] MEDS: Insulin LISPRO 300 UNITS/3 ML VIAL SUBQ SCH ×2 (16:20→21:28)
[2021-07-22] MEDS ORDERED: *HR* Rocuronium Bromide 50 MG/5 ML VIAL IVP ONE (17:10)
[2021-07-23] MEDS: FentaNYL (PF) 2,500 MCG/50 ML IV.SOLN IVC SCH ×2 (00:23→12:00)
[2021-07-23] MEDS: Artificial Tears SOLN 15 ML BOTTLE BOTH EYES SCH ×6 (00:51→20:39)
[2021-07-23] MEDS: Insulin LISPRO 300 UNITS/3 ML VIAL SUBQ SCH ×6 (00:53→20:40)
[2021-07-23] MEDS: Ipratropium 1 PUFF INHALER IH SCH ×6 (03:24→23:22)
[2021-07-23 04:23] LABS: VBG Ionized Calcium 1.17 mmol/L (1.15-1.35)
[2021-07-23 04:32] LABS: Basophils % 0.2 %; Eosinophils % 0.3 %; Hematocrit 37.6 % (35.3-44.9); Hemoglobin 12.1 g/dL (11.5-15.4); Immature Granulocytes % 1.1 % (0-4); Lymphocytes % 19.9 %; Mean Corpuscular HGB Conc 32.2 g/dL (31.6-35.5); Mean Corpuscular Hemoglobin 26.2 pg (28.0-33.3); Mean Corpuscular Volume 81.4 fL (83.0-100.0); Mean Platelet Volume 10.6 fL (9.4-12.4); Monocytes # 0.7 K/mcL (0.0-1.3); Monocytes % 6.8 %; Neutrophils # 7.2 K/mcL (1.6-8.9); Platelet Count 135 K/mcL (140-400); Red Blood Count 4.62 M/mcL (3.82-4.97); Red Cell Distribution Width 16.4 % (11.5-14.5); Segmented Neutrophils % 71.7 %
[2021-07-23 04:47] LABS: BUN/Creatinine Ratio 33 (6-26); Blood Urea Nitrogen 24 mg/dL (6-20); Calcium 8.6 mg/dL (8.6-10.3); Carbon Dioxide 31 mEq/L (23-29); Chloride 98 mEq/L (98-107); Glucose 135 mg/dL (70-105); Magnesium 2.5 mg/dL (1.6-2.6); Osmolality,Calculated 290 (280-300); Phosphorous 4.2 mg/dL (2.7-4.5); Potassium 3.7 mEq/L (3.5-5.1); Sodium 137 mEq/L (136-145); eGFR For African Americans > 60 (> 60); eGFR For Non-African Americans > 60 (> 60)
[2021-07-23 05:00] LABS: ABG Base Excess 5 mEq/L (-2 to 3); ABG HCO3 32 mEq/L (21-27); ABG Oxygen Saturation 95 % (95-98); ABG PCO2 57 mmHg (35-45); ABG PH 7.36 pH Units (7.32-7.45); ABG PO2 83 mmHg (85-104); ABG TCO2 34 mEq/L (20-26); Blood Gas VT 350 cc
[2021-07-23] MEDS: Pantoprazole 40 MG VIAL IVP SCH (08:23)
[2021-07-23] MEDS: *HR* Enoxaparin 40 MG/0.4 ML SYRINGE SQ SCH ×2 (08:23→20:38)
[2021-07-23] MEDS: Cholecalciferol (D-3) 1,000 UNIT (25MCG) TABLET PO SCH (08:24)
[2021-07-23] MEDS: Chlorhexidine Rinse 15 ML MOUTHWASH MM SCH ×3 (08:24→20:39)
[2021-07-23] MEDS: Furosemide 40 MG TABLET PO SCH (08:24)
[2021-07-23] MEDS: Lactobacillus 1 EACH CAP.SPRINK PO SCH ×2 (08:24→20:38)
[2021-07-23] MEDS: Multivit/Ca/Min/Fe/FA 1 TAB TABLET PO SCH (08:24)
[2021-07-23] MEDS: Nystatin Cream 15 GM TUBE TP SCH ×3 (08:26→20:40)
[2021-07-23] MEDS: Nystatin POWDER 30 GM BOTTLE TP SCH ×2 (08:26→20:40)
[2021-07-23] MEDS: Cisatracurium 200 MG in 0.9 % Sodium Chloride 180 ML IVC SCH ×2 (11:03→22:28)
[2021-07-24] MEDS: Artificial Tears SOLN 15 ML BOTTLE BOTH EYES SCH ×7 (00:18→23:04)
[2021-07-24] MEDS: Insulin LISPRO 300 UNITS/3 ML VIAL SUBQ SCH ×7 (00:18→23:04)
[2021-07-24] MEDS: FentaNYL (PF) 2,500 MCG/50 ML IV.SOLN IVC SCH ×2 (00:31→13:46)
[2021-07-24] MEDS: Ipratropium 1 PUFF INHALER IH SCH ×5 (03:49→19:49)
[2021-07-24 04:33] LABS: ABG Base Excess 7 mEq/L (-2 to 3); ABG HCO3 33 mEq/L (21-27); ABG Oxygen Saturation 95 % (95-98); ABG PCO2 54 mmHg (35-45); ABG PH 7.39 pH Units (7.32-7.45); ABG PO2 78 mmHg (85-104); ABG TCO2 34 mEq/L (20-26); Blood Gas VT 350 cc
[2021-07-24 04:35] LABS: Basophils % 0.2 %; Eosinophils % 0.4 %; Hematocrit 32.8 % (35.3-44.9); Hemoglobin 10.9 g/dL (11.5-15.4); Immature Granulocytes % 1.8 % (0-4); Lymphocytes # 1.4 K/mcL (0.6-4.6); Lymphocytes % 15.2 %; Mean Corpuscular HGB Conc 33.2 g/dL (31.6-35.5); Mean Corpuscular Hemoglobin 27.2 pg (28.0-33.3); Mean Corpuscular Volume 81.8 fL (83.0-100.0); Mean Platelet Volume 9.9 fL (9.4-12.4); Monocytes # 0.6 K/mcL (0.0-1.3); Monocytes % 6.3 %; Platelet Count 101 K/mcL (140-400); Red Blood Count 4.01 M/mcL (3.82-4.97); Red Cell Distribution Width 16.3 % (11.5-14.5); Segmented Neutrophils % 76.1 %; White Blood Count 9.3 K/mcL (4.3-11.1)
[2021-07-24 04:56] LABS: Alanine Aminotransferase 49 Units/L (7-52); Albumin 3.1 g/dL (3.5-5.7); Albumin/Globulin Ratio 1.8 (1.1-2.2); Alkaline Phosphatase 48 Units/L (34-104); Aspartate Amino Transferase 45 Units/L (13-39); BUN/Creatinine Ratio 39 (6-26); Bilirubin,Total 0.6 mg/dL (0.3-1.0); Blood Urea Nitrogen 24 mg/dL (6-20); Calcium 8.5 mg/dL (8.6-10.3); Carbon Dioxide 33 mEq/L (23-29); Chloride 99 mEq/L (98-107); Globulin 1.7 g/dL (2.4-3.5); Glucose 128 mg/dL (70-105); Magnesium 2.5 mg/dL (1.6-2.6); Osmolality,Calculated 292 (280-300); Phosphorous 3.9 mg/dL (2.7-4.5); Potassium 3.6 mEq/L (3.5-5.1); Sodium 138 mEq/L (136-145); Total Protein 4.8 g/dL (6.4-8.9); eGFR For African Americans > 60 (> 60); eGFR For Non-African Americans > 60 (> 60)
[2021-07-24] MEDS: Norepinephrine 4 MG/254 ML IV.SOLN IVC SCH (07:04)
[2021-07-24] MEDS: Lactobacillus 1 EACH CAP.SPRINK PO SCH ×2 (08:19→20:17)
[2021-07-24] MEDS: Chlorhexidine Rinse 15 ML MOUTHWASH MM SCH ×2 (08:19→20:17)
[2021-07-24] MEDS: Multivit/Ca/Min/Fe/FA 1 TAB TABLET PO SCH (08:19)
[2021-07-24] MEDS: Pantoprazole 40 MG VIAL IVP SCH (08:19)
[2021-07-24] MEDS: *HR* Enoxaparin 40 MG/0.4 ML SYRINGE SQ SCH ×2 (08:19→20:17)
[2021-07-24] MEDS: Cholecalciferol (D-3) 1,000 UNIT (25MCG) TABLET PO SCH (08:19)
[2021-07-24] MEDS: Nystatin POWDER 30 GM BOTTLE TP SCH ×2 (08:20→20:17)
[2021-07-24] MEDS: Nystatin Cream 15 GM TUBE TP SCH ×3 (08:20→20:17)
[2021-07-24] MEDS: Cisatracurium 200 MG in 0.9 % Sodium Chloride 180 ML IVC SCH ×2 (10:20→22:01)
[2021-07-25] MEDS: Ipratropium 1 PUFF INHALER IH SCH ×7 (00:24→23:19)
[2021-07-25] MEDS: FentaNYL (PF) 2,500 MCG/50 ML IV.SOLN IVC SCH ×3 (02:29→23:56)
[2021-07-25 04:10] LABS: Basophils % 0.2 %; Hemoglobin 10.1 g/dL (11.5-15.4); Nucleated Red Blood Cells 0.2 /100 WBC (0); Red Cell Distribution Width 16.6 % (11.5-14.5)
[2021-07-25 04:12] LABS: Eosinophils % 0.3 %; Immature Granulocytes % 2.5 % (0-4); Immature Platelets 3.5 % (1.1-6.1); Lymphocytes # 1.3 K/mcL (0.6-4.6); Mean Corpuscular HGB Conc 32.6 g/dL (31.6-35.5); Mean Corpuscular Hemoglobin 26.5 pg (28.0-33.3); Mean Corpuscular Volume 81.4 fL (83.0-100.0); Mean Platelet Volume 10.5 fL (9.4-12.4); Monocytes # 0.5 K/mcL (0.0-1.3); Monocytes % 5.3 %; Neutrophils # 7.1 K/mcL (1.6-8.9); Red Blood Count 3.81 M/mcL (3.82-4.97); Segmented Neutrophils % 77.7 %; White Blood Count 9.1 K/mcL (4.3-11.1)
[2021-07-25] MEDS: Insulin LISPRO 300 UNITS/3 ML VIAL SUBQ SCH ×5 (04:12→20:31)
[2021-07-25] MEDS: Artificial Tears SOLN 15 ML BOTTLE BOTH EYES SCH ×6 (04:12→23:53)
[2021-07-25 04:15] LABS: Platelet Count 98 K/mcL (140-400)
[2021-07-25 04:29] LABS: BUN/Creatinine Ratio 55 (6-26); Blood Urea Nitrogen 24 mg/dL (6-20); C-Reactive Protein 19 mg/L (Less than 10); Calcium 8.7 mg/dL (8.6-10.3); Carbon Dioxide 31 mEq/L (23-29); Chloride 98 mEq/L (98-107); Glucose 109 mg/dL (70-105); Magnesium 2.5 mg/dL (1.6-2.6); Osmolality,Calculated 287 (280-300); Phosphorous 3.6 mg/dL (2.7-4.5); Potassium 3.6 mEq/L (3.5-5.1); Sodium 136 mEq/L (136-145); eGFR For African Americans > 60 (> 60); eGFR For Non-African Americans > 60 (> 60)
[2021-07-25 04:49] LABS: ABG Base Excess 6 mEq/L (-2 to 3); ABG HCO3 31 mEq/L (21-27); ABG Oxygen Saturation 94 % (95-98); ABG PCO2 48 mmHg (35-45); ABG PH 7.42 pH Units (7.32-7.45); ABG PO2 70 mmHg (85-104); ABG TCO2 32 mEq/L (20-26); Blood Gas VT 350 cc
[2021-07-25] MEDS: Cisatracurium 200 MG in 0.9 % Sodium Chloride 180 ML IVC SCH ×2 (08:10→20:09)
[2021-07-25] MEDS: Norepinephrine 4 MG/254 ML IV.SOLN IVC SCH (08:15)
[2021-07-25] MEDS: Chlorhexidine Rinse 15 ML MOUTHWASH MM SCH ×2 (08:15→20:31)
[2021-07-25] MEDS: Pantoprazole 40 MG VIAL IVP SCH (08:15)
[2021-07-25] MEDS: *HR* Enoxaparin 40 MG/0.4 ML SYRINGE SQ SCH ×2 (08:15→20:31)
[2021-07-25] MEDS: Nystatin POWDER 30 GM BOTTLE TP SCH ×2 (08:16→20:32)
[2021-07-25] MEDS: Nystatin Cream 15 GM TUBE TP SCH ×3 (08:16→20:32)
[2021-07-25] MEDS: Cholecalciferol (D-3) 1,000 UNIT (25MCG) TABLET PO SCH (08:16)
[2021-07-25] MEDS: Multivit/Ca/Min/Fe/FA 1 TAB TABLET PO SCH (08:16)
[2021-07-25] MEDS: Lactobacillus 1 EACH CAP.SPRINK PO SCH ×2 (08:16→20:31)
[2021-07-25] MEDS ORDERED: *HR* Dextrose 50 % in Water (Syg) 50 ML SYRINGE IVP PRN (12:30)
[2021-07-25 13:07] LABS: Bilirubin,Urine Negative (Negative); Blood,Urine Negative (Negative); Clarity,Urine Clear (Clear); Color,Urine Yellow (Yellow); Glucose,Urine (UA) Normal (Normal); Ketones,Urine 20 mg/dL (Negative); Leukocyte Esterase,Urine Negative (Negative); Nitrite,Urine Negative (Negative); Protein,Urine Trace mg/dL (Neg-Trace); Specific Gravity,Urine > 1.030 (1.010-1.025); Urobilinogen,Urine Normal (Normal)
[2021-07-26] MEDS: Insulin LISPRO 300 UNITS/3 ML VIAL SUBQ SCH ×6 (02:21→20:28)
[2021-07-26] MEDS: Ipratropium 1 PUFF INHALER IH SCH ×6 (03:38→23:17)
[2021-07-26 03:52] LABS: ABG Base Excess 6 mEq/L (-2 to 3); ABG HCO3 32 mEq/L (21-27); ABG Oxygen Saturation 96 % (95-98); ABG PCO2 56 mmHg (35-45); ABG PH 7.37 pH Units (7.32-7.45); ABG PO2 84 mmHg (85-104); ABG TCO2 34 mEq/L (20-26); Blood Gas VT 350 cc
[2021-07-26] MEDS: Artificial Tears SOLN 15 ML BOTTLE BOTH EYES SCH ×5 (04:21→20:04)
[2021-07-26 04:27] LABS: Nucleated Red Blood Cells 0.4 /100 WBC (0); Red Cell Distribution Width 17.1 % (11.5-14.5)
[2021-07-26 04:29] LABS: Basophils % 0.2 %; Eosinophils # 0.1 K/mcL (0.0-0.6); Eosinophils % 1.2 %; Hematocrit 30.4 % (35.3-44.9); Immature Granulocytes % 2.9 % (0-4); Lymphocytes # 1.5 K/mcL (0.6-4.6); Lymphocytes % 14.7 %; Mean Corpuscular HGB Conc 32.9 g/dL (31.6-35.5); Mean Corpuscular Volume 81.9 fL (83.0-100.0); Mean Platelet Volume 9.9 fL (9.4-12.4); Monocytes # 0.7 K/mcL (0.0-1.3); Monocytes % 6.7 %; Neutrophils # 7.6 K/mcL (1.6-8.9); Platelet Count 97 K/mcL (140-400); Red Blood Count 3.71 M/mcL (3.82-4.97); Segmented Neutrophils % 74.3 %; White Blood Count 10.2 K/mcL (4.3-11.1)
[2021-07-26 04:49] LABS: BUN/Creatinine Ratio 59 (6-26); Blood Urea Nitrogen 20 mg/dL (6-20); Calcium 8.7 mg/dL (8.6-10.3); Carbon Dioxide 31 mEq/L (23-29); Chloride 97 mEq/L (98-107); Glucose 99 mg/dL (70-105); Magnesium 2.2 mg/dL (1.6-2.6); Osmolality,Calculated 283 (280-300); Potassium 3.7 mEq/L (3.5-5.1); Sodium 135 mEq/L (136-145); eGFR For African Americans > 60 (> 60); eGFR For Non-African Americans > 60 (> 60)
[2021-07-26] MEDS: Cisatracurium 200 MG in 0.9 % Sodium Chloride 180 ML IVC SCH ×2 (08:00→19:36)
[2021-07-26] MEDS: Chlorhexidine Rinse 15 ML MOUTHWASH MM SCH ×2 (08:44→20:03)
[2021-07-26] MEDS: Multivit/Ca/Min/Fe/FA 1 TAB TABLET PO SCH (08:45)
[2021-07-26] MEDS: Lactobacillus 1 EACH CAP.SPRINK PO SCH ×2 (08:45→20:03)
[2021-07-26] MEDS: *HR* Enoxaparin 40 MG/0.4 ML SYRINGE SQ SCH ×2 (08:45→20:03)
[2021-07-26] MEDS: Cholecalciferol (D-3) 1,000 UNIT (25MCG) TABLET PO SCH (08:45)
[2021-07-26] MEDS: Pantoprazole 40 MG VIAL IVP SCH (08:45)
[2021-07-26] MEDS: Norepinephrine 4 MG/254 ML IV.SOLN IVC SCH (08:46)
[2021-07-26] MEDS: Nystatin POWDER 30 GM BOTTLE TP SCH ×2 (08:48→20:06)
[2021-07-26] MEDS: Nystatin Cream 15 GM TUBE TP SCH ×3 (08:48→20:05)
[2021-07-26] MEDS: FentaNYL (PF) 2,500 MCG/50 ML IV.SOLN IVC SCH (13:10)
[2021-07-26] MEDS: Docusate Oral Soln 100 MG/10 ML UDC GTUBE SCH (20:03)
[2021-07-26] MEDS ORDERED: Docusate Oral Soln 100 MG/10 ML UDC PO SCH (21:00)
[2021-07-27] MEDS: Artificial Tears SOLN 15 ML BOTTLE BOTH EYES SCH ×6 (00:31→20:21)
[2021-07-27] MEDS: Insulin LISPRO 300 UNITS/3 ML VIAL SUBQ SCH ×6 (00:31→20:22)
[2021-07-27] MEDS: FentaNYL (PF) 2,500 MCG/50 ML IV.SOLN IVC SCH ×2 (00:34→13:39)
[2021-07-27] MEDS: Norepinephrine 4 MG/254 ML IV.SOLN IVC SCH (02:30)
[2021-07-27] MEDS: Ipratropium 1 PUFF INHALER IH SCH ×6 (03:32→23:44)
[2021-07-27 04:06] LABS: ABG Base Excess 6 mEq/L (-2 to 3); ABG HCO3 33 mEq/L (21-27); ABG Oxygen Saturation 91 % (95-98); ABG PCO2 59 mmHg (35-45); ABG PH 7.36 pH Units (7.32-7.45); ABG PO2 66 mmHg (85-104); ABG TCO2 35 mEq/L (20-26); Blood Gas VT 350 cc
[2021-07-27 04:58] LABS: Hemoglobin 9.4 g/dL (11.5-15.4); Monocytes % 4.5 %; Red Cell Distribution Width 17.6 % (11.5-14.5)
[2021-07-27 05:00] LABS: Basophils # 0.1 K/mcL (0.0-0.2); Basophils % 0.5 %; Eosinophils # 0.2 K/mcL (0.0-0.6); Eosinophils % 1.6 %; Hematocrit 29.6 % (35.3-44.9); Immature Platelets 4.8 % (1.1-6.1); Lymphocytes # 1.4 K/mcL (0.6-4.6); Lymphocytes % 14.5 %; Mean Corpuscular HGB Conc 31.8 g/dL (31.6-35.5); Mean Corpuscular Hemoglobin 26.7 pg (28.0-33.3); Mean Corpuscular Volume 84.1 fL (83.0-100.0); Neutrophils # 7.3 K/mcL (1.6-8.9); Nucleated Red Blood Cells 0.4 /100 WBC (0); Red Blood Count 3.52 M/mcL (3.82-4.97); Segmented Neutrophils % 73.9 %; White Blood Count 9.9 K/mcL (4.3-11.1)
[2021-07-27 05:03] LABS: Monocytes # 0.5 K/mcL (0.0-1.3); Platelet Count 95 K/mcL (140-400)
[2021-07-27 05:15] LABS: Alanine Aminotransferase 69 Units/L (7-52); Albumin/Globulin Ratio 1.4 (1.1-2.2); Alkaline Phosphatase 48 Units/L (34-104); Aspartate Amino Transferase 47 Units/L (13-39); BUN/Creatinine Ratio 55 (6-26); Bilirubin,Total 0.8 mg/dL (0.3-1.0); Blood Urea Nitrogen 18 mg/dL (6-20); Calcium 8.7 mg/dL (8.6-10.3); Carbon Dioxide 30 mEq/L (23-29); Chloride 99 mEq/L (98-107); Globulin 2.1 g/dL (2.4-3.5); Glucose 131 mg/dL (70-105); Osmolality,Calculated 286 (280-300); Potassium 3.7 mEq/L (3.5-5.1); Sodium 136 mEq/L (136-145); Total Protein 5.1 g/dL (6.4-8.9); eGFR For African Americans > 60 (> 60); eGFR For Non-African Americans > 60 (> 60)
[2021-07-27] MEDS: Cisatracurium 200 MG in 0.9 % Sodium Chloride 180 ML IVC SCH ×2 (07:38→18:49)
[2021-07-27] MEDS: Chlorhexidine Rinse 15 ML MOUTHWASH MM SCH ×2 (08:34→20:22)
[2021-07-27] MEDS: Docusate Oral Soln 100 MG/10 ML UDC GTUBE SCH ×2 (08:34→20:20)
[2021-07-27] MEDS: *HR* Enoxaparin 40 MG/0.4 ML SYRINGE SQ SCH ×2 (08:34→20:20)
[2021-07-27] MEDS: Pantoprazole 40 MG VIAL IVP SCH (08:34)
[2021-07-27] MEDS: Multivit/Ca/Min/Fe/FA 1 TAB TABLET PO SCH (08:35)
[2021-07-27] MEDS: Nystatin Cream 15 GM TUBE TP SCH ×3 (08:35→20:21)
[2021-07-27] MEDS: Cholecalciferol (D-3) 1,000 UNIT (25MCG) TABLET PO SCH (08:35)
[2021-07-27] MEDS: Lactobacillus 1 EACH CAP.SPRINK PO SCH ×2 (08:35→20:21)
[2021-07-27] MEDS: Nystatin POWDER 30 GM BOTTLE TP SCH ×2 (08:35→20:21)
[2021-07-27] MEDS ORDERED: CISATRACURIUM IVC SCH (22:00)
[2021-07-27] MEDS ORDERED: SODIUM CHLORIDE 0.9% IVC SCH (22:00)
[2021-07-28] MEDS: Insulin LISPRO 300 UNITS/3 ML VIAL SUBQ SCH ×7 (00:28→23:46)
[2021-07-28] MEDS: Artificial Tears SOLN 15 ML BOTTLE BOTH EYES SCH ×7 (00:29→23:47)
[2021-07-28] MEDS: FentaNYL (PF) 2,500 MCG/50 ML IV.SOLN IVC SCH ×2 (00:40→14:01)
[2021-07-28] MEDS: Ipratropium 1 PUFF INHALER IH SCH ×6 (03:20→23:32)
[2021-07-28 04:02] LABS: ABG Base Excess 7 mEq/L (-2 to 3); ABG HCO3 34 mEq/L (21-27); ABG Oxygen Saturation 88 % (95-98); ABG PCO2 59 mmHg (35-45); ABG PH 7.36 pH Units (7.32-7.45); ABG PO2 58 mmHg (85-104); ABG TCO2 35 mEq/L (20-26); Blood Gas VT 350 cc
[2021-07-28 04:17] LABS: Nucleated Red Blood Cells 0.4 /100 WBC (0); White Blood Count 9.6 K/mcL (4.3-11.1)
[2021-07-28 04:19] LABS: Hematocrit 27.1 % (35.3-44.9); Hemoglobin 8.6 g/dL (11.5-15.4); Immature Platelets 5.1 % (1.1-6.1); Mean Corpuscular HGB Conc 31.7 g/dL (31.6-35.5); Mean Corpuscular Hemoglobin 26.5 pg (28.0-33.3); Mean Corpuscular Volume 83.4 fL (83.0-100.0); Mean Platelet Volume 10.5 fL (9.4-12.4); Platelet Count 101 K/mcL (140-400); Red Blood Count 3.25 M/mcL (3.82-4.97); Red Cell Distribution Width 17.9 % (11.5-14.5)
[2021-07-28 04:40] LABS: Alanine Aminotransferase 60 Units/L (7-52); Albumin 2.9 g/dL (3.5-5.7); Albumin/Globulin Ratio 1.2 (1.1-2.2); Alkaline Phosphatase 50 Units/L (34-104); Aspartate Amino Transferase 32 Units/L (13-39); BUN/Creatinine Ratio 48 (6-26); Bilirubin,Total 0.8 mg/dL (0.3-1.0); Blood Urea Nitrogen 14 mg/dL (6-20); Calcium 8.8 mg/dL (8.6-10.3); Carbon Dioxide 32 mEq/L (23-29); Chloride 99 mEq/L (98-107); Globulin 2.4 g/dL (2.4-3.5); Glucose 118 mg/dL (70-105); Magnesium 2.1 mg/dL (1.6-2.6); Osmolality,Calculated 286 (280-300); Sodium 137 mEq/L (136-145); Total Protein 5.3 g/dL (6.4-8.9); eGFR For African Americans > 60 (> 60); eGFR For Non-African Americans > 60 (> 60)
[2021-07-28 04:48] LABS: Anisocytosis 1+ (Not Present); Lymphocytes # 0.8 K/mcL (0.6-4.6); Monocytes # 0.2 K/mcL (0.0-1.3); Neutrophils # 7.9 K/mcL (1.6-8.9); Platelet Estimate Slight Decrease (Normal); Poikilocytosis 1+ (Not Present); Smudge Cells Present (Not Present)
[2021-07-28] MEDS: Cisatracurium 200 MG in 0.9 % Sodium Chloride 180 ML IVC SCH ×2 (06:30→17:36)
[2021-07-28] MEDS: Norepinephrine 4 MG/254 ML IV.SOLN IVC SCH (07:17)
[2021-07-28] MEDS: Lactobacillus 1 EACH CAP.SPRINK PO SCH ×2 (07:33→19:58)
[2021-07-28] MEDS: Chlorhexidine Rinse 15 ML MOUTHWASH MM SCH ×2 (07:33→19:58)
[2021-07-28] MEDS: Docusate Oral Soln 100 MG/10 ML UDC GTUBE SCH ×2 (07:33→19:57)
[2021-07-28] MEDS: Pantoprazole 40 MG VIAL IVP SCH (07:33)
[2021-07-28] MEDS: *HR* Enoxaparin 40 MG/0.4 ML SYRINGE SQ SCH ×2 (07:33→19:58)
[2021-07-28] MEDS: Cholecalciferol (D-3) 1,000 UNIT (25MCG) TABLET PO SCH (07:33)
[2021-07-28] MEDS: Nystatin POWDER 30 GM BOTTLE TP SCH ×2 (07:34→19:58)
[2021-07-28] MEDS: Multivit/Ca/Min/Fe/FA 1 TAB TABLET PO SCH (07:34)
[2021-07-28] MEDS: Nystatin Cream 15 GM TUBE TP SCH ×3 (07:35→19:58)
[2021-07-29] MEDS: FentaNYL (PF) 2,500 MCG/50 ML IV.SOLN IVC SCH ×2 (03:33→17:04)
[2021-07-29] MEDS: Ipratropium 1 PUFF INHALER IH SCH ×6 (03:41→23:36)
[2021-07-29] MEDS: Artificial Tears SOLN 15 ML BOTTLE BOTH EYES SCH ×6 (04:06→23:58)
[2021-07-29] MEDS: Insulin LISPRO 300 UNITS/3 ML VIAL SUBQ SCH ×5 (04:06→20:17)
[2021-07-29] MEDS: Norepinephrine 4 MG/254 ML IV.SOLN IVC SCH (04:06)
[2021-07-29] MEDS: Cisatracurium 200 MG in 0.9 % Sodium Chloride 180 ML IVC SCH ×4 (04:07→21:47)
[2021-07-29 04:33] LABS: Hematocrit 28.7 % (35.3-44.9); Mean Corpuscular HGB Conc 31.4 g/dL (31.6-35.5); Mean Corpuscular Hemoglobin 26.2 pg (28.0-33.3); Mean Corpuscular Volume 83.7 fL (83.0-100.0); Mean Platelet Volume 10.4 fL (9.4-12.4); Monocytes # 0.7 K/mcL (0.0-1.3); Nucleated Red Blood Cells 0.4 /100 WBC (0); Platelet Count 102 K/mcL (140-400); Red Blood Count 3.43 M/mcL (3.82-4.97); Red Cell Distribution Width 17.8 % (11.5-14.5); White Blood Count 11.5 K/mcL (4.3-11.1)
[2021-07-29 04:37] LABS: Alanine Aminotransferase 65 Units/L (7-52); Albumin/Globulin Ratio 1.3 (1.1-2.2); Alkaline Phosphatase 55 Units/L (34-104); Aspartate Amino Transferase 41 Units/L (13-39); BUN/Creatinine Ratio 85 (6-26); Bilirubin,Total 1.1 mg/dL (0.3-1.0); Blood Urea Nitrogen 22 mg/dL (6-20); Carbon Dioxide 32 mEq/L (23-29); Chloride 95 mEq/L (98-107); Globulin 2.4 g/dL (2.4-3.5); Glucose 126 mg/dL (70-105); Magnesium 2.1 mg/dL (1.6-2.6); Osmolality,Calculated 281 (280-300); Sodium 133 mEq/L (136-145); Total Protein 5.4 g/dL (6.4-8.9); eGFR For African Americans > 60 (> 60); eGFR For Non-African Americans > 60 (> 60)
[2021-07-29 05:00] LABS: ABG Base Excess 7 mEq/L (-2 to 3); ABG HCO3 35 mEq/L (21-27); ABG Oxygen Saturation 86 % (95-98); ABG PCO2 66 mmHg (35-45); ABG PH 7.33 pH Units (7.32-7.45); ABG PO2 57 mmHg (85-104); ABG TCO2 37 mEq/L (20-26); Blood Gas Modality AF; Blood Gas VT 350 cc
[2021-07-29 05:56] LABS: Eosinophils # 0.2 K/mcL (0.0-0.6); Lymphocytes # 0.5 K/mcL (0.6-4.6); Neutrophils # 9.3 K/mcL (1.6-8.9)
[2021-07-29 05:57] LABS: Anisocytosis 1+ (Not Present); Platelet Estimate Slight Decrease (Normal)
[2021-07-29] MEDS: Cholecalciferol (D-3) 1,000 UNIT (25MCG) TABLET PO SCH (07:29)
[2021-07-29] MEDS: Docusate Oral Soln 100 MG/10 ML UDC GTUBE SCH ×2 (07:29→20:16)
[2021-07-29] MEDS: Chlorhexidine Rinse 15 ML MOUTHWASH MM SCH ×2 (07:30→20:15)
[2021-07-29] MEDS: Multivit/Ca/Min/Fe/FA 1 TAB TABLET PO SCH (07:30)
[2021-07-29] MEDS: *HR* Enoxaparin 40 MG/0.4 ML SYRINGE SQ SCH ×2 (07:30→20:15)
[2021-07-29] MEDS: Lactobacillus 1 EACH CAP.SPRINK PO SCH ×2 (07:30→20:16)
[2021-07-29] MEDS: Pantoprazole 40 MG VIAL IVP SCH (07:31)
[2021-07-29] MEDS: Nystatin POWDER 30 GM BOTTLE TP SCH ×2 (07:31→20:16)
[2021-07-29] MEDS: Nystatin Cream 15 GM TUBE TP SCH ×3 (07:31→20:16)
[2021-07-29] MEDS: Ampicillin/Sulbactam 1,500 MG in 0.9 % Sodium Chloride Mini Bag 100 ML IVPB SCH (23:58)
[2021-07-30] MEDS: Insulin LISPRO 300 UNITS/3 ML VIAL SUBQ SCH ×6 (00:32→21:35)
[2021-07-30 01:44] LABS: Bacteria,Urine Moderate per hpf (None-Few); Bilirubin,Urine Negative (Negative); Blood,Urine Moderate (Negative); Clarity,Urine Turbid (Clear); Color,Urine Yellow (Yellow); Glucose,Urine (UA) Normal (Normal); Ketones,Urine Negative (Negative); Leukocyte Esterase,Urine Trace (Negative); Mucus,Urine Few per lpf (None-Few); Nitrite,Urine Negative (Negative); Protein,Urine 30 mg/dL (Neg-Trace); RBC,Urine TNTC per hpf (0-3); Specific Gravity,Urine > 1.030 (1.010-1.025); Squamous Epithelial Cell,Urine Few per hpf (None-Few); WBC,Urine 15-30 per hpf (0-3)
[2021-07-30 03:44] LABS: ABG Base Excess 4 mEq/L (-2 to 3); ABG HCO3 32 mEq/L (21-27); ABG Oxygen Saturation 84 % (95-98); ABG PCO2 64 mmHg (35-45); ABG PO2 56 mmHg (85-104); ABG TCO2 34 mEq/L (20-26); Blood Gas VT 350 cc
[2021-07-30] MEDS: Ipratropium 1 PUFF INHALER IH SCH ×6 (04:18→23:05)
[2021-07-30] MEDS: Norepinephrine 4 MG/254 ML IV.SOLN IVC SCH (04:27)
[2021-07-30] MEDS: Artificial Tears SOLN 15 ML BOTTLE BOTH EYES SCH ×5 (04:27→19:47)
[2021-07-30 04:47] LABS: Basophils # 0.1 K/mcL (0.0-0.2); Basophils % 0.4 %; Eosinophils # 0.2 K/mcL (0.0-0.6); Eosinophils % 1.2 %; Hematocrit 28.6 % (35.3-44.9); Hemoglobin 9.2 g/dL (11.5-15.4); Immature Granulocytes % 8.1 % (0-4); Lymphocytes % 7.4 %; Mean Corpuscular HGB Conc 32.2 g/dL (31.6-35.5); Mean Corpuscular Hemoglobin 27.1 pg (28.0-33.3); Mean Corpuscular Volume 84.1 fL (83.0-100.0); Mean Platelet Volume 10.4 fL (9.4-12.4); Monocytes # 0.8 K/mcL (0.0-1.3); Monocytes % 6.3 %; Platelet Count 142 K/mcL (140-400); Red Cell Distribution Width 18.3 % (11.5-14.5); Segmented Neutrophils % 76.6 %; White Blood Count 13.4 K/mcL (4.3-11.1)
[2021-07-30 04:50] LABS: Neutrophils # 10.3 K/mcL (1.6-8.9)
[2021-07-30 05:02] LABS: Alanine Aminotransferase 87 Units/L (7-52); Albumin 3.2 g/dL (3.5-5.7); Albumin/Globulin Ratio 1.3 (1.1-2.2); Alkaline Phosphatase 73 Units/L (34-104); Aspartate Amino Transferase 53 Units/L (13-39); BUN/Creatinine Ratio 67 (6-26); Bilirubin,Total 1.2 mg/dL (0.3-1.0); Blood Urea Nitrogen 26 mg/dL (6-20); Calcium 9.3 mg/dL (8.6-10.3); Carbon Dioxide 31 mEq/L (23-29); Chloride 92 mEq/L (98-107); Globulin 2.5 g/dL (2.4-3.5); Glucose 132 mg/dL (70-105); Magnesium 2.3 mg/dL (1.6-2.6); Osmolality,Calculated 279 (280-300); Potassium 4.6 mEq/L (3.5-5.1); Sodium 131 mEq/L (136-145); Total Protein 5.7 g/dL (6.4-8.9); eGFR For African Americans > 60 (> 60); eGFR For Non-African Americans > 60 (> 60)
[2021-07-30] MEDS: Ampicillin/Sulbactam 1,500 MG in 0.9 % Sodium Chloride Mini Bag 100 ML IVPB SCH ×3 (05:20→17:00)
[2021-07-30] MEDS: FentaNYL (PF) 2,500 MCG/50 ML IV.SOLN IVC SCH ×2 (05:23→19:46)
[2021-07-30] MEDS: Cisatracurium 200 MG in 0.9 % Sodium Chloride 180 ML IVC SCH ×2 (05:24→17:07)
[2021-07-30 05:47] LABS: Platelet Estimate Normal (Normal); Reactive Lymphocytes Present (Not Present)
[2021-07-30] MEDS: Lactobacillus 1 EACH CAP.SPRINK PO SCH ×2 (08:25→19:45)
[2021-07-30] MEDS: Multivit/Ca/Min/Fe/FA 1 TAB TABLET PO SCH (08:25)
[2021-07-30] MEDS: Cholecalciferol (D-3) 1,000 UNIT (25MCG) TABLET PO SCH (08:25)
[2021-07-30] MEDS: Chlorhexidine Rinse 15 ML MOUTHWASH MM SCH ×2 (08:25→19:45)
[2021-07-30] MEDS: Pantoprazole 40 MG VIAL IVP SCH (08:25)
[2021-07-30] MEDS: Docusate Oral Soln 100 MG/10 ML UDC GTUBE SCH ×2 (08:25→21:36)
[2021-07-30] MEDS: *HR* Enoxaparin 40 MG/0.4 ML SYRINGE SQ SCH ×2 (08:26→19:45)
[2021-07-30] MEDS: Nystatin Cream 15 GM TUBE TP SCH ×3 (08:47→19:47)
[2021-07-30] MEDS: Nystatin POWDER 30 GM BOTTLE TP SCH ×2 (08:47→19:47)
[2021-07-31] MEDS: Insulin LISPRO 300 UNITS/3 ML VIAL SUBQ SCH ×7 (00:40→23:34)
[2021-07-31] MEDS: Artificial Tears SOLN 15 ML BOTTLE BOTH EYES SCH ×7 (00:40→23:07)
[2021-07-31] MEDS: Ampicillin/Sulbactam 1,500 MG in 0.9 % Sodium Chloride Mini Bag 100 ML IVPB SCH ×5 (00:42→23:07)
[2021-07-31] MEDS: Ipratropium 1 PUFF INHALER IH SCH ×6 (03:14→23:41)
[2021-07-31] MEDS: Cisatracurium 200 MG in 0.9 % Sodium Chloride 180 ML IVC SCH ×2 (04:21→16:27)
[2021-07-31 04:38] LABS: ABG Base Excess 5 mEq/L (-2 to 3); ABG HCO3 31 mEq/L (21-27); ABG Oxygen Saturation 81 % (95-98); ABG PCO2 58 mmHg (35-45); ABG PH 7.35 pH Units (7.32-7.45); ABG PO2 49 mmHg (85-104); ABG TCO2 33 mEq/L (20-26); Blood Gas VT 350 cc
[2021-07-31 04:52] LABS: Basophils % 0.3 %; Eosinophils # 0.2 K/mcL (0.0-0.6); Eosinophils % 1.8 %; Hematocrit 27.4 % (35.3-44.9); Hemoglobin 8.7 g/dL (11.5-15.4); Lymphocytes # 0.9 K/mcL (0.6-4.6); Lymphocytes % 6.9 %; Mean Corpuscular HGB Conc 31.8 g/dL (31.6-35.5); Mean Corpuscular Hemoglobin 26.8 pg (28.0-33.3); Mean Corpuscular Volume 84.3 fL (83.0-100.0); Mean Platelet Volume 10.6 fL (9.4-12.4); Monocytes # 0.6 K/mcL (0.0-1.3); Monocytes % 4.9 %; Neutrophils # 9.7 K/mcL (1.6-8.9); Nucleated Red Blood Cells 0.7 /100 WBC (0); Platelet Count 146 K/mcL (140-400); Red Blood Count 3.25 M/mcL (3.82-4.97); Segmented Neutrophils % 79.1 %; White Blood Count 12.3 K/mcL (4.3-11.1)
[2021-07-31 05:20] LABS: Alanine Aminotransferase 78 Units/L (7-52); Albumin 2.8 g/dL (3.5-5.7); Alkaline Phosphatase 71 Units/L (34-104); Aspartate Amino Transferase 56 Units/L (13-39); BUN/Creatinine Ratio 78 (6-26); Bilirubin,Total 1.2 mg/dL (0.3-1.0); Blood Urea Nitrogen 21 mg/dL (6-20); Calcium 8.9 mg/dL (8.6-10.3); Carbon Dioxide 30 mEq/L (23-29); Chloride 95 mEq/L (98-107); Globulin 2.8 g/dL (2.4-3.5); Glucose 142 mg/dL (70-105); Magnesium 2.1 mg/dL (1.6-2.6); Osmolality,Calculated 277 (280-300); Potassium 4.3 mEq/L (3.5-5.1); Sodium 131 mEq/L (136-145); Total Protein 5.6 g/dL (6.4-8.9); eGFR For African Americans > 60 (> 60); eGFR For Non-African Americans > 60 (> 60)
[2021-07-31 05:33] LABS: Anisocytosis 1+ (Not Present); Polychromasia 1+ (Not Present)
[2021-07-31 05:34] LABS: Basophilic Stippling 1+ (Not Present); Platelet Estimate Normal (Normal)
[2021-07-31] MEDS: *HR* Enoxaparin 40 MG/0.4 ML SYRINGE SQ SCH ×2 (08:40→19:34)
[2021-07-31] MEDS: Docusate Oral Soln 100 MG/10 ML UDC GTUBE SCH ×2 (08:40→19:35)
[2021-07-31] MEDS: Chlorhexidine Rinse 15 ML MOUTHWASH MM SCH ×2 (08:40→19:35)
[2021-07-31] MEDS: Pantoprazole 40 MG VIAL IVP SCH (08:40)
[2021-07-31] MEDS: Lactobacillus 1 EACH CAP.SPRINK PO SCH ×2 (08:41→19:35)
[2021-07-31] MEDS: Cholecalciferol (D-3) 1,000 UNIT (25MCG) TABLET PO SCH (08:41)
[2021-07-31] MEDS: Multivit/Ca/Min/Fe/FA 1 TAB TABLET PO SCH (08:41)
[2021-07-31] MEDS: FentaNYL (PF) 2,500 MCG/50 ML IV.SOLN IVC SCH ×2 (09:00→23:08)
[2021-07-31] MEDS: Nystatin Cream 15 GM TUBE TP SCH ×3 (10:13→19:37)
[2021-07-31] MEDS: Nystatin POWDER 30 GM BOTTLE TP SCH ×2 (10:14→19:36)
[2021-07-31 10:38] LABS: Bacteria,Urine Few per hpf (None-Few); Bilirubin,Urine Negative (Negative); Blood,Urine Negative (Negative); Clarity,Urine Turbid (Clear); Color,Urine Yellow (Yellow); Glucose,Urine (UA) Normal (Normal); Hyaline Casts,Urine Few per lpf (None Seen); Ketones,Urine Negative (Negative); Leukocyte Esterase,Urine Negative (Negative); Mucus,Urine Few per lpf (None-Few); Nitrite,Urine Negative (Negative); Protein,Urine 50 mg/dL (Neg-Trace); RBC,Urine 15-30 per hpf (0-3); Specific Gravity,Urine 1.028 (1.010-1.025); Squamous Epithelial Cell,Urine Few per hpf (None-Few)
[2021-07-31] MEDS: Norepinephrine 4 MG/254 ML IV.SOLN IVC SCH ×2 (19:34→23:30)
[2021-08-01] MEDS: Artificial Tears SOLN 15 ML BOTTLE BOTH EYES SCH ×6 (03:30→23:47)
[2021-08-01] MEDS: Ipratropium 1 PUFF INHALER IH SCH ×6 (03:41→23:48)
[2021-08-01] MEDS: Insulin LISPRO 300 UNITS/3 ML VIAL SUBQ SCH ×6 (03:57→23:43)
[2021-08-01 03:58] LABS: Hematocrit 27.1 % (35.3-44.9); Hemoglobin 8.6 g/dL (11.5-15.4); Mean Corpuscular HGB Conc 31.7 g/dL (31.6-35.5); Mean Corpuscular Hemoglobin 27.5 pg (28.0-33.3); Mean Corpuscular Volume 86.6 fL (83.0-100.0); Mean Platelet Volume 10.9 fL (9.4-12.4); Nucleated Red Blood Cells 1.8 /100 WBC (0); Platelet Count 189 K/mcL (140-400); Red Blood Count 3.13 M/mcL (3.82-4.97); Red Cell Distribution Width 17.9 % (11.5-14.5); White Blood Count 12.5 K/mcL (4.3-11.1)
[2021-08-01 04:01] LABS: Alanine Aminotransferase 82 Units/L (7-52); Albumin 2.8 g/dL (3.5-5.7); Alkaline Phosphatase 77 Units/L (34-104); Aspartate Amino Transferase 55 Units/L (13-39); BUN/Creatinine Ratio 81 (6-26); Bilirubin,Total 1.1 mg/dL (0.3-1.0); Blood Urea Nitrogen 29 mg/dL (6-20); Calcium 9.1 mg/dL (8.6-10.3); Carbon Dioxide 30 mEq/L (23-29); Chloride 95 mEq/L (98-107); Globulin 2.9 g/dL (2.4-3.5); Glucose 142 mg/dL (70-105); Magnesium 2.1 mg/dL (1.6-2.6); Osmolality,Calculated 278 (280-300); Phosphorous 3.6 mg/dL (2.7-4.5); Potassium 4.9 mEq/L (3.5-5.1); Sodium 130 mEq/L (136-145); Total Protein 5.7 g/dL (6.4-8.9); eGFR For African Americans > 60 (> 60); eGFR For Non-African Americans > 60 (> 60)
[2021-08-01 04:40] LABS: ABG Base Excess 5 mEq/L (-2 to 3); ABG HCO3 34 mEq/L (21-27); ABG Oxygen Saturation 90 % (95-98); ABG PCO2 75 mmHg (35-45); ABG PH 7.26 pH Units (7.32-7.45); ABG PO2 71 mmHg (85-104); ABG TCO2 36 mEq/L (20-26); Blood Gas VT 350 cc
[2021-08-01 04:48] LABS: Anisocytosis 1+ (Not Present); Lymphocytes # 2.5 K/mcL (0.6-4.6); Monocytes # 0.3 K/mcL (0.0-1.3); Platelet Estimate Normal (Normal); Polychromasia 1+ (Not Present)
[2021-08-01] MEDS: Ampicillin/Sulbactam 1,500 MG in 0.9 % Sodium Chloride Mini Bag 100 ML IVPB SCH ×4 (05:04→23:09)
[2021-08-01] MEDS: Cisatracurium 200 MG in 0.9 % Sodium Chloride 180 ML IVC SCH ×2 (05:08→15:15)
[2021-08-01] MEDS: FentaNYL (PF) 2,500 MCG/50 ML IV.SOLN IVC SCH ×2 (06:02→19:53)
[2021-08-01] MEDS ORDERED: Furosemide 40 MG/4 ML VIAL IVP ONE ×2 (06:25→08:19)
[2021-08-01] MEDS: Multivit/Ca/Min/Fe/FA 1 TAB TABLET PO SCH (07:53)
[2021-08-01] MEDS: Pantoprazole 40 MG VIAL IVP SCH (07:53)
[2021-08-01] MEDS: Cholecalciferol (D-3) 1,000 UNIT (25MCG) TABLET PO SCH (07:53)
[2021-08-01] MEDS: *HR* Enoxaparin 40 MG/0.4 ML SYRINGE SQ SCH ×2 (07:53→19:52)
[2021-08-01] MEDS: Lactobacillus 1 EACH CAP.SPRINK PO SCH ×2 (07:54→19:52)
[2021-08-01] MEDS: Docusate Oral Soln 100 MG/10 ML UDC GTUBE SCH ×2 (07:54→19:53)
[2021-08-01] MEDS: Chlorhexidine Rinse 15 ML MOUTHWASH MM SCH ×2 (07:54→19:52)
[2021-08-01] MEDS: Nystatin Cream 15 GM TUBE TP SCH ×3 (07:55→20:06)
[2021-08-01] MEDS: Nystatin POWDER 30 GM BOTTLE TP SCH ×2 (07:56→20:06)
[2021-08-01] MEDS: Norepinephrine 4 MG/254 ML IV.SOLN IVC SCH (11:52)
[2021-08-02] MEDS: Cisatracurium 200 MG in 0.9 % Sodium Chloride 180 ML IVC SCH (01:24)
[2021-08-02] MEDS: Norepinephrine 4 MG/254 ML IV.SOLN IVC SCH (01:26)
[2021-08-02] MEDS: Artificial Tears SOLN 15 ML BOTTLE BOTH EYES SCH ×2 (03:46→07:48)
[2021-08-02] MEDS: Insulin LISPRO 300 UNITS/3 ML VIAL SUBQ SCH ×2 (03:47→11:27)
[2021-08-02 04:00] LABS: Hematocrit 26.5 % (35.3-44.9); Hemoglobin 8.3 g/dL (11.5-15.4); Lymphocytes # 1.8 K/mcL (0.6-4.6); Mean Corpuscular HGB Conc 31.3 g/dL (31.6-35.5); Mean Corpuscular Hemoglobin 26.6 pg (28.0-33.3); Mean Corpuscular Volume 84.9 fL (83.0-100.0); Mean Platelet Volume 10.4 fL (9.4-12.4); Nucleated Red Blood Cells 1.7 /100 WBC (0); Platelet Count 243 K/mcL (140-400); Red Blood Count 3.12 M/mcL (3.82-4.97); Red Cell Distribution Width 18.7 % (11.5-14.5); White Blood Count 17.7 K/mcL (4.3-11.1)
[2021-08-02] MEDS: Ipratropium 1 PUFF INHALER IH SCH ×3 (04:00→11:05)
[2021-08-02 04:06] LABS: VBG Ionized Calcium 1.16 mmol/L (1.15-1.35)
[2021-08-02 04:49] LABS: BUN/Creatinine Ratio 90 (6-26); Blood Urea Nitrogen 37 mg/dL (6-20); Calcium 8.9 mg/dL (8.6-10.3); Carbon Dioxide 27 mEq/L (23-29); Chloride 95 mEq/L (98-107); Glucose 156 mg/dL (70-105); Magnesium 2.1 mg/dL (1.6-2.6); Osmolality,Calculated 286 (280-300); Potassium 4.1 mEq/L (3.5-5.1); Sodium 132 mEq/L (136-145); eGFR For African Americans > 60 (> 60); eGFR For Non-African Americans > 60 (> 60)
[2021-08-02] MEDS: Ampicillin/Sulbactam 1,500 MG in 0.9 % Sodium Chloride Mini Bag 100 ML IVPB SCH (05:02)
[2021-08-02 05:08] LABS: ABG Base Excess 4 mEq/L (-2 to 3); ABG HCO3 31 mEq/L (21-27); ABG Oxygen Saturation 87 % (95-98); ABG PCO2 57 mmHg (35-45); ABG PH 7.34 pH Units (7.32-7.45); ABG PO2 58 mmHg (85-104); ABG TCO2 33 mEq/L (20-26); Blood Gas Modality ASSIST CONTROL; Blood Gas VT 350 cc
[2021-08-02] MEDS: FentaNYL (PF) 2,500 MCG/50 ML IV.SOLN IVC SCH (07:46)
[2021-08-02] MEDS: Multivit/Ca/Min/Fe/FA 1 TAB TABLET PO SCH (07:47)
[2021-08-02] MEDS: Pantoprazole 40 MG VIAL IVP SCH (07:47)
[2021-08-02] MEDS: Lactobacillus 1 EACH CAP.SPRINK PO SCH (07:47)
[2021-08-02] MEDS: *HR* Enoxaparin 40 MG/0.4 ML SYRINGE SQ SCH (07:47)
[2021-08-02] MEDS: Chlorhexidine Rinse 15 ML MOUTHWASH MM SCH (07:47)
[2021-08-02] MEDS: Nystatin POWDER 30 GM BOTTLE TP SCH (07:47)
[2021-08-02] MEDS: Nystatin Cream 15 GM TUBE TP SCH (07:48)
[2021-08-02 08:01] LABS: Monocytes # 0.4 K/mcL (0.0-1.3); Neutrophils # 14.5 K/mcL (1.6-8.9); Platelet Estimate Normal (Normal)
[2021-08-02 08:40] VITALS: TEMP 98
[2021-08-02 11:07] VITALS: O2SAT 92
[2021-08-02] MEDS: Cholecalciferol (D-3) 1,000 UNIT (25MCG) TABLET PO SCH (11:28)
[2021-08-02] MEDS: Docusate Oral Soln 100 MG/10 ML UDC GTUBE SCH (11:28)
[2021-08-02 13:19] VITALS: BP 90/63; PULSE 114
== END 2021-08-02 12:05 | disposition short-term general hospital (02) | DRG 870 ==
LOC: SUATTDRO → 2ANU 13:39 → EMEROOARM 13:39 → 2ANU 20:10 → SUATTDRO 20:27 → 2NENU 07-04 18:58 → 2NNU 07-08 15:52 → ICNU 07-21 00:59
PROVIDERS: ADMIT Pharmacist; ATTEND Internal Medicine